=== PATIENT | male | born 1930 | race Caucasian/White ===

== ENCOUNTER 2017-02-13 21:08 | Emergency (ER) | payer OTHER, MEDICARE ==
[2017-02-13 21:19] VITALS: TEMP 98.1; O2SAT 94
--- NOTE | 2017-02-13 21:37 | CPEKG ---
Heart Rate: 78 RR Interval: 769 QRSD Interval: 98 QT Interval: 392 QTC Interval: 447 QRS [place]: -49 T Wave [place]: 63 EKG Severity - ABNORMAL ECG - EKG Impression: ATRIAL FIBRILLATION, V-RATE 63-93 EKG Impression: LEFT ANTERIOR FASCICULAR BLOCK EKG Impression: ATRIAL FIBRILLATIOIN HAS REPLACED NORMAL SINUS RHYTHM FROM PRIOR ECG Electronically Signed By: Derek Lopez 15-Feb-2017 16:38:44
[2017-02-13] MEDS ORDERED: IOPAMIDOL (ISOVUE 370) 100 ML BTL IV ONE (22:11)
[2017-02-13 22:45] VITALS: RESP 18
--- NOTE | 2017-02-13 22:48 | EDPHY ---
H & P Stated Complaint: New onset Afib 02/13, + D-Dimer 0.82 1545hours-called by Helen Time Seen by Provider: 02/13/17 21:38 HPI/ROS: Chief complaint: Irregular heartbeat, abnormal lab results HPI: 86-year-old male has had several weeks of fatigue. Was seen by his primary care physician today and diagnosed with new onset atrial fibrillation. Patient received a call from his doctor this evening telling him that a blood test done today was abnormal is concerned about the possibility of a blood clot in his lungs. Patient denies any chest pain or shortness of breath PE. No fevers or chills. No nausea or vomiting. He has he not aware that his heartbeat is irregular cannot feel at this time. No syncope or fainting. No calf pain or swelling. ROS: 10 point Review of Systems is negative except as noted in the HPI. Past medical history: Possible nocturnal seizures High cholesterol Physical exam: Gen: Awake, Alert, No Distress HEENT: Nose: no rhinorrhea Eyes: PERRLA, EOMI Mouth: Moist mucosa Neck: Supple, no JVD Chest: nontender, lungs clear to auscultation Heart: S1, S2 normal, no murmur, irregularly irregular Abd: Soft, non-tender, no guarding Back: no CVA tenderness, no midline tenderness Ext: no edema, non-tender Skin: no rash Neuro: CN II-XII intact, Sensation grossly intact, Strength 5/5 in bilateral upper and lower extremities - Personal History Current Tetanus/Diphtheria Vaccine: Unsure Tetanus Vaccine Date: < 10 years - Medical/Surgical History Hx Asthma: No Hx Chronic Respiratory Disease: No Hx Diabetes: No Hx Cardiac Disease: Yes Hx Renal Disease: No Hx Cirrhosis: No Hx Alcoholism: No Hx HIV/AIDS: No Hx Splenectomy or Spleen Trauma: No Other PMH: PMH: transient global amnesia, high cholesterol, HTN. PSH: Rt Rotator cuff repair, BCC nose and shoulder, knee arthroscopy. new onset AFIB-2016 - Social History Smoking Status: Never smoked Constitutional: Initial Vital Signs Temperature (C) 36.7 C 02/13/17 21:13 Heart Rate 89 02/13/17 21:13 Respiratory Rate 16 02/13/17 21:13 Blood Pressure 137/94 H 02/13/17 21:13 O2 Sat (%) 94 03/20/17 21:13 O2 Delivery Mode Room Air Allergies/Adverse Reactions: No Known Allergies Allergy (Verified 02/13/17 21:18) Home Medications: Medication Instructions Recorded Atorvastatin Calcium [Lipitor 10 10 mg PO DAILY 08/10/16 mg (*)] levETIRAcetam [Keppra 250 mg (*)] 250 mg PO BID #60 tab 08/10/16 Diclofenac Sodium 10/23/16 Omeprazole 10/23/16 diphenhydrAMINE 10/23/16 Aspirin 325 mg (*) 02/13/17 Gabapentin 02/13/17 Metoprolol Tartrate 02/13/17 Medical Decision Making - Diagnostics EKG Interpretation: EC:35 atrial fibrillation with a rate of 78, left anterior fascicular block , no acute ST or T-wave changes. Imaging: CT angiogram of the chest is negative for PE per Dr. Hernandez. ED Course/Re-evaluation: 86-year-old with new diagnosis of atrial fibrillation. He is rate controlled. He had blood work today which showed an elevated D-dimer at 0.8. He will need a CT scan rule out acute PE. This is negative anticipate he will be able to go home with follow-up with his primary care physician on Monday as scheduled. Departure - Departure Disposition: Home, Routine, Self-Care Clinical Impression: Atrial fibrillation Condition: Good Instructions: Yisel-fib (Atrial Fibrillation) (ED) Additional Instructions: Follow up with her primary care physician, Dr. Cervantes, on Monday as scheduled. Return emergency department for chest pain, shortness of breath, increasing weakness, passing out, or any other concerns. Referrals: Fly Cervantes MD [Primary Care Provider] - As per Instructions
[2017-02-13 23:15] VITALS: BP 127/88; PULSE 69
== END 2017-02-13 23:15 | disposition home or self-care (01) ==
DX: I48.91 Unspecified atrial fibrillation (principal); I10 Essential (primary) hypertension; Z79.82 Long term (current) use of aspirin
CPT/HCPCS: 71275; 93005; 99285; Q9967; 82607-90

== ENCOUNTER 2017-03-15 10:41 | Day surgery (SDC) | payer OTHER, MEDICARE ==
[2017-03-15] MEDS ORDERED: ASPIRIN EC 325 MG TAB PO ONE (10:54)
[2017-03-15] MEDS ORDERED: FAMOTIDINE 20 MG TAB PO ONE (10:54)
[2017-03-15] MEDS ORDERED: diphenhydrAMINE 25 MG CAP PO ONE (10:54)
[2017-03-15] MEDS ORDERED: NS 1,000 ML IV ONE (10:54)
[2017-03-15] MEDS ORDERED: DIAZEPAM 5 MG TAB PO ONE (10:54)
--- NOTE | 2017-03-15 11:25 | CPEKG ---
Heart Rate: 75 RR Interval: 800 QRSD Interval: 100 QT Interval: 400 QTC Interval: 447 QRS [place]: -44 T Wave [place]: 58 EKG Severity - ABNORMAL ECG - EKG Impression: ATRIAL FIBRILLATION EKG Impression: LEFT ANTERIOR FASCICULAR BLOCK EKG Impression: ABNRM R PROG, CONSIDER ASMI OR LEAD PLACEMENT Electronically Signed By: Derek Lopez 16-Mar-2017 14:23:18
[2017-03-15 11:47] LABS: % IMMATURE GRANULYOCYTES 0.6 % (0.0-1.1); ABSOLUTE IMMATURE GRANULOCYTES 0.04 10^3/uL (0.00-0.10); ADD DIFF? NO; ADD MORPH? NO; ADD SCAN? NO; ATYPICAL LYMPHOCYTE FLAG 0 (0-99); FRAGMENT RBC FLAG 0 (0-99); HEMOGLOBIN 15.8 g/dL (13.7-17.5); LEFT SHIFT FLG 0 (0-99); LIPEMIA HEMOLYSIS FLAG 80 (0-99); MEAN CELL HEMOGLOBIN 29.8 pg (27.9-34.1); MEAN CELL HEMOGLOBIN CONCENTR. 33.6 g/dL (32.4-36.7); MEAN CELL VOLUME 88.5 fL (81.5-99.8); MEAN PLATELET VOLUME 9.5 fL (8.7-11.7); PLATELET CLUMPS FLAG 0 (0-99); PLATELET COUNT 180 10^3/uL (150-400); RED BLOOD CELL COUNT 5.31 10^6/uL (4.40-6.38)
[2017-03-15 11:56] LABS: INR 1.08 (0.83-1.16); PROTIME(PATIENT) 13.9 SEC (12.0-15.0)
[2017-03-15 12:22] LABS: ANION GAP 11 mEq/L (8-16); CALCIUM 9.1 mg/dL (8.5-10.4); CARBON DIOXIDE 25 mEq/l (22-31); CHLORIDE 106 mEq/L (97-110); CHOLESTEROL 133 mg/dL (140-220); CHOLESTEROL/HDL RATIO 2.89 RATIO (1.00-4.97); CREATININE 1.2 mg/dL (0.7-1.3); GLOMERULAR FILTRATION RATE 58; GLUCOSE 90 mg/dL (70-100); HIGH DENSITY LIPOPROTEIN 46 mg/dL (40-65); LDL/HDL RATIO 1.54 RATIO (1.00-3.64); LOW DENSITY LIPOPROTEIN 71 mg/dL (80-100); MAGNESIUM 1.9 mg/dL (1.6-2.3); NON-HIGH DENSITY LIPOPROTEIN 87 mg/dL (90-129); POTASSIUM 4.3 mEq/L (3.5-5.2); SODIUM 142 mEq/L (134-144); TRIGLYCERIDE 82 mg/dL (40-150); VERY LOW DENSITY LIPOPROTEINS 16 mg/dL (8-25)
[2017-03-15] MEDS ORDERED: LIDOCAINE 1% 30 ML SDV ONE (13:28)
[2017-03-15] MEDS ORDERED: MIDAZOLAM 2 MG/2 ML VIAL ONE (13:29)
[2017-03-15] MEDS ORDERED: fentaNYL 100 MCG/2 ML INJ ONE (13:29)
[2017-03-15] MEDS ORDERED: IOPAMIDOL (ISOVUE-370) 150 ML BTL IV ONE (13:29)
[2017-03-15] MEDS ORDERED: HYDROCODONE/APAP 5/325 TAB PO PRN (15:01)
[2017-03-15] MEDS ORDERED: ONDANSETRON 4 MG/2 ML VIAL IVP PRN (15:01)
[2017-03-15] MEDS ORDERED: OXYCODONE/APAP 5/325 TAB PO PRN (15:01)
[2017-03-15] MEDS ORDERED: NITROGLYCERIN 0.4 MG BTL SL PRN (15:01)
[2017-03-15] MEDS ORDERED: ATROPINE SULFATE 1 MG/10 ML SYR IVP PRN (15:01)
--- NOTE | 2017-03-15 16:59 | CPIP ---
[f rep st] INVASIVE CARDIAC PROCEDURE DATE OF PROCEDURE: 03/15/2017 PROCEDURE PERFORMED: Diagnostic left heart catheterization. INDICATION FOR LEFT HEART CATHETERIZATION: Newly reduced left ventricular function with LVEF of 49% . Evidence of inferior wall ischemia and inferior wall hypokinesis on nuclear stress test. Symptom s of shortness of breath and dyspnea on exertion. PROCEDURE: After informed consent was obtained the patient was taken to the cardiac catheterization lab where he was prepped and draped in a sterile fashion. Using 1% lidocaine, the right groin was anesthetized. Initial attempt to cannulate the right common femoral artery was unsuccessful. Micro puncture needle technique was used successfully with the assistance of Dr. Rojas. After 6-Divehi f emoral sheath was placed, JL4 catheter was used to obtain images of the left coronary anatomy in mul tiple projections. A JL4 catheter was exchanged over a guidewire for a JR4 catheter. JR4 catheter was used to take images of the right coronary anatomy in multiple projections. The JR4 catheter was exchanged over a guidewire for an angled pigtail catheter. An angled pigtail catheter was used to cross the aortic valve. LVEDP was assessed. Left ventriculogram was performed. An angled pigtail catheter was removed over guidewire. The patient tolerated the procedure well without complications . FINDINGS: 1. Left main is normal size and normal caliber, bifurcates into the left anterior descending and le ft circumflex artery. There was no evidence of coronary artery disease within the left main. 2. The left anterior descending has a moderate-size 1st and small size 2nd diagonal branch. There are multiple septal perforators. The LAD wraps around the LV apex. Left anterior descending artery is free of coronary artery disease. 3. The left circumflex coronary artery has a moderate size 1st and 2nd obtuse marginal branch. The re was some mild luminal irregularities within the mid and distal segments of the circumflex artery. 4. Right coronary artery. It is a dominant vessel. PDA and PLV branch. There is no ev idence of coronary artery disease within the right coronary artery. 5. Left ventriculogram demonstrates LVEF of 50% to 55%. There was no evidence of aortic valve grad ient. CONCLUSION: Mild nonobstructive coronary artery disease with mild luminal irregularities within cir cumflex vessel. Left ventricular ejection fraction of 50% to 55%. No flow-limiting coronary artery disease. PLAN: The patient will cover for 4 hours in the CVC[facility]. Patient will be discharged home. The aaron graf will hold Eliquis until followup visit on Monday, March 20, 2017. /[id number]/MODL
== END 2017-03-15 18:43 | disposition home or self-care (01) ==
LOC: FCATH 10:41
PROVIDERS: ATTEND Internal Medicine Cardiovascular Disease
DX: I25.10 Atherosclerotic heart disease of native coronary artery without angina pectoris (principal); I42.9 Cardiomyopathy, unspecified; I48.1 Persistent atrial fibrillation; I44.4 Left anterior fascicular block
CPT/HCPCS: C1760; J1644; J2250; J3010; Q9967

== ENCOUNTER 2017-03-29 07:53 | Day surgery (SDC) | payer OTHER, MEDICARE ==
[2017-03-29] MEDS ORDERED: PROPOFOL 200 MG/20 ML VIAL IVP ONE (07:57)
[2017-03-29] MEDS ORDERED: NS 500 ML IV ONE (07:57)
[2017-03-29] MEDS ORDERED: fentaNYL 100 MCG/2 ML INJ IVP ONE (07:57)
[2017-03-29] MEDS ORDERED: BENZOCAINE UNIT DOSE SPRAY HURRICAINE MM ONE (07:57)
[2017-03-29] MEDS ORDERED: MIDAZOLAM 2 MG/2 ML VIAL IVP ONE (07:57)
--- NOTE | 2017-03-29 08:16 | CPEKG ---
Heart Rate: 77 RR Interval: 779 QRSD Interval: 98 QT Interval: 424 QTC Interval: 480 QRS [place]: -41 T Wave [place]: 54 EKG Severity - ABNORMAL ECG - EKG Impression: ATRIAL FIBRILLATION, V-RATE 54-102 EKG Impression: LEFT ANTERIOR FASCICULAR BLOCK EKG Impression: BORDERLINE PROLONGED QT INTERVAL Electronically Signed By: Steven Bradford 30-Mar-2017 08:04:01
[2017-03-29 08:53] LABS: APTT 28.9 SEC (23.0-38.0); INR 1.15 (0.83-1.16); PROTIME(PATIENT) 14.7 SEC (12.0-15.0)
[2017-03-29] MEDS ORDERED: LIDOCAINE 2% 5 ML SDV ONE (09:11)
[2017-03-29 09:14] LABS: CALCIUM 9.1 mg/dL (8.5-10.4); CARBON DIOXIDE 24 mEq/l (22-31); CHLORIDE 106 mEq/L (97-110); CREATININE 1.4 mg/dL (0.7-1.3); GLOMERULAR FILTRATION RATE 48; GLUCOSE 94 mg/dL (70-100); SODIUM 140 mEq/L (134-144)
[2017-03-29 09:16] LABS: ANION GAP 10 mEq/L (8-16); POTASSIUM 4.7 mEq/L (3.5-5.2)
[2017-03-29] MEDS ORDERED: PROPOFOL 200 MG/20 ML VIAL ONE (09:47)
[2017-03-29] MEDS ORDERED: LIDOCAINE/PRILOCAINE 1 EACH CRTUBE TP ONE (10:07)
[2017-03-29] MEDS ORDERED: APIXABAN 5 MG TAB ONE (10:40)
[2017-03-29] MEDS ORDERED: APIXABAN 5 MG TAB PO ONE (11:00)
--- NOTE | 2017-03-29 12:24 | GPN ---
[f rep st] PROCEDURE NOTE DATE OF PROCEDURE: 03/29/2017 PROCEDURE PERFORMED: Transesophageal echocardiogram/cardioversion. INDICATION FOR PROCEDURE: Symptomatic atrial fibrillation. PROCEDURE: The patient is a pleasant 86-year-old gentleman with newly diagnosed rate-controlled sym ptomatic atrial fibrillation. He complains of significant fatigue. He has undergone recent diagnos tic left heart catheterization demonstrating no evidence of flow-limiting coronary disease. He cont inues to be fatigued despite rate-controlled atrial fibrillation. He has been compliant with Eliqui s 5 mg p.o. b.i.d. However, he has not been on Eliquis for a full 30 days without interruption, pro mpting DANIEL prior to cardioversion. After informed consent was obtained, the patient was brought to the cardiovascular procedure room. He received consent for DANIEL, cardioversion, as well as anesthesia with propofol. After appropriate consents were signed and all questions were answered, the patient had a bite block in place. Propof ol was administered with the assistance of Anesthesia. Once appropriate level of sedation was achie giovanni, DANIEL probe was passed without incident. DANIEL probe was used to take images of all cardiac struct ures. Please see complete DANIEL report for full details. There was no evidence of left atrial append age thrombus. Atrial appendage was seen at multiple angles and X-plane views as well. There was ev idence of spontaneous echo contrast within the left atrium with no evidence of thrombus. DANIEL probe was removed without incident. The patient underwent attempts at cardioversion with 200 ivon ules of synchronized energy x3. Attempts were unsuccessful and he remained in rate controlled atria l fibrillation. He awoke from the procedure without difficulty. He had no complaints. PLAN: 1. We will continue Eliquis 5 mg p.o. b.i.d. 2. We will decrease metoprolol tartrate to 12.5 mg p.o. b.i.d. 3. Add amiodarone 400 mg p.o. b.i.d. x1 week and decrease to 400 mg daily. 4. We will plan to follow up in the office in 2 weeks. /[id number]/MODL
== END 2017-03-29 11:45 | disposition home or self-care (01) ==
LOC: FCATH 07:53
PROVIDERS: ATTEND Internal Medicine Cardiovascular Disease
DX: I48.1 Persistent atrial fibrillation (principal); R53.82 Chronic fatigue, unspecified; I44.4 Left anterior fascicular block; I10 Essential (primary) hypertension
CPT/HCPCS: J2704

== ENCOUNTER 2017-05-24 08:58 | Day surgery (SDC) | payer OTHER, MEDICARE ==
[2017-05-24] MEDS ORDERED: NS 500 ML IV ONE (09:07)
[2017-05-24] MEDS ORDERED: MIDAZOLAM 2 MG/2 ML VIAL IVP ONE (09:07)
[2017-05-24] MEDS ORDERED: fentaNYL 100 MCG/2 ML INJ IVP ONE (09:07)
[2017-05-24] MEDS ORDERED: PROPOFOL 200 MG/20 ML VIAL IVP ONE (09:07)
--- NOTE | 2017-05-24 09:19 | CPEKG ---
Heart Rate: 62 RR Interval: 968 QRSD Interval: 100 QT Interval: 452 QTC Interval: 459 QRS [place]: -53 T Wave [place]: 66 EKG Severity - ABNORMAL ECG - EKG Impression: ATRIAL FIBRILLATION, V-RATE 50-72 EKG Impression: LEFT ANTERIOR FASCICULAR BLOCK Electronically Signed By: Derek Lopez 25-May-2017 09:55:14
[2017-05-24 09:52] LABS: ANION GAP 11 mEq/L (8-16); CARBON DIOXIDE 21 mEq/l (22-31); CHLORIDE 107 mEq/L (97-110); CREATININE 1.5 mg/dL (0.7-1.3); GLOMERULAR FILTRATION RATE 44; GLUCOSE 94 mg/dL (70-100); POTASSIUM 4.6 mEq/L (3.5-5.2); SODIUM 139 mEq/L (134-144)
[2017-05-24 10:03] LABS: INR 1.36 (0.83-1.16); PROTIME(PATIENT) 16.8 SEC (12.0-15.0)
[2017-05-24 10:04] LABS: APTT 30.2 SEC (23.0-38.0)
[2017-05-24] MEDS ORDERED: ATROPINE SULFATE 1 MG/10 ML SYR ONE (10:05)
[2017-05-24] MEDS ORDERED: LIDOCAINE 2% 5 ML SDV ONE (10:06)
--- NOTE | 2017-05-24 10:24 | CPEKG ---
Heart Rate: 61 RR Interval: 984 P-R Interval: 232 QRSD Interval: 106 QT Interval: 488 QTC Interval: 492 P [place] [employer]: 26 QRS [place] [employer]: -49 T Wave [place] [employer]: 31 EKG Severity - ABNORMAL ECG - EKG Impression: SINUS RHYTHM EKG Impression: FIRST DEGREE AV BLOCK EKG Impression: LEFT ANTERIOR FASCICULAR BLOCK EKG Impression: BORDERLINE PROLONGED QT INTERVAL EKG Impression: SINUS RHYTHM HAS REPLACED ATRIAL FIBRILLATION Electronically Signed By: Derek Lopez 25-May-2017 09:55:41
--- NOTE | 2017-05-24 11:30 | CPR ---
[f rep st] NONINVASIVE CARDIAC PROCEDURE REPORT DATE OF PROCEDURE: 05/24/2017 PROCEDURE PERFORMED: Direct current cardioversion. INDICATION FOR PROCEDURE: Symptomatic atrial fibrillation. HISTORY OF PRESENT ILLNESS: The patient is a pleasant 86-year-old gentleman with symptomatic rate c ontrolled atrial fibrillation. Attempts at cardioversion last month were unsuccessful with 200 joul es of synchronized energy x3. He was subsequently loaded on amiodarone. He has remained on amiodar one 200 mg once daily. He remains on anticoagulation with Eliquis 5 mg p.o. b.i.d. He has not miss ed a dose of Eliquis in well over 4 weeks. He did take his Eliquis this morning. He took his amiod arone 200 mg once daily this morning, as well. After informed consent was obtained for anesthesia, as well as for cardioversion, patient was given anesthesia with propofol. Once appropriate level of sedation was achieved, the patient underwent ca rdioversion, initially with a single synchronized biphasic shock at 200 joules. He remained in atri al fibrillation. A second shock of 200 joules of synchronized energy resulted in normalization of r hythm back to sinus bradycardia, with rates in the mid 50s. He awoke from the procedure without complications. He was feeling well. Of note, he did develop a scrape on his left elbow after the initial cardioversion. Hemostasis was achieved, and bandage was applied. This was discussed with the patient and his family. PLAN: 1. Patient will be discharged home on outpatient medications. 2. Patient will continue amiodarone 200 mg once daily. 3. Patient will remain on Eliquis 5 mg p.o. b.i.d. I have expressed the importance of no interrupt ion of anticoagulation therapy. 4. He will follow up in the office in 2 weeks. /[id number]/MODL
== END 2017-05-24 12:31 | disposition home or self-care (01) ==
LOC: FCATH 08:58
PROVIDERS: ATTEND Internal Medicine Cardiovascular Disease
PROC: 5A2204Z Restoration of Cardiac Rhythm, Single (ICD-10-PCS; principal; 2017-05-24)
DX: I48.91 Unspecified atrial fibrillation (principal); G40.909 Epilepsy, unspecified, not intractable, without status epilepticus; F32.9 Major depressive disorder, single episode, unspecified; M85.80 Other specified disorders of bone density and structure, unspecified site
CPT/HCPCS: J0461; J2704

== ENCOUNTER → 2017-07-06 | Outpatient (CLI) | payer OTHER, MEDICARE | LOC: BMCIMAGING 16:07 | PROVIDERS: ATTEND Internal Medicine Cardiovascular Disease | DX: R53.82 Chronic fatigue, unspecified (principal) ==

== ENCOUNTER → 2018-04-06 | Outpatient (CLI) | payer OTHER, MEDICARE | LOC: BHFA 13:15 | PROVIDERS: ATTEND Internal Medicine Cardiovascular Disease | DX: I48.91 Unspecified atrial fibrillation (principal); Z79.899 Other long term (current) drug therapy; R00.1 Bradycardia, unspecified; R53.83 Other fatigue ==

== ENCOUNTER → 2018-05-17 | Outpatient (CLI) | payer OTHER, MEDICARE | LOC: BHFA 11:00 | PROVIDERS: ATTEND Internal Medicine Cardiovascular Disease | DX: I48.91 Unspecified atrial fibrillation (principal); I25.10 Atherosclerotic heart disease of native coronary artery without angina pectoris ==

== ENCOUNTER 2018-08-10 11:58 | Emergency (ER) | payer OTHER, MEDICARE ==
--- NOTE | 2018-08-10 13:10 | EDPHY ---
H & P Stated Complaint: r knee snapped while standing up wed Time Seen by Provider: 08/10/18 12:58 HPI/ROS: CHIEF COMPLAINT: Right knee pain HISTORY OF PRESENT ILLNESS: 87-year-old male presents with right knee pain. 2 days ago he was sitting and when he tried to stand up he had sudden onset of severe pain, associated with a snapping sound in his right knee. Difficulty changing from a sitting to standing position since that injury. No pain when supine or when seated. Able to walk with a cane. Requesting MRI. ROS: No numbness, weakness, excessive bleeding, syncopal episode, other injury. - Personal History Current Tetanus Diphtheria and Acellular Pertussis (TDAP): No Tetanus Vaccine Date: < 10 years - Medical/Surgical History Hx Asthma: No Hx Chronic Respiratory Disease: No Hx Diabetes: No Hx Cardiac Disease: Yes Hx Renal Disease: No Hx Cirrhosis: No Hx Alcoholism: No Hx HIV/AIDS: No Hx Splenectomy or Spleen Trauma: No Other PMH: PMH: transient global amnesia, high cholesterol, HTN. PSH: Rt Rotator cuff repair, BCC nose and shoulder, knee arthroscopy. new onset AFIB-2016 - Social History Smoking Status: Never smoked - Physical Exam Exam: General Appearance: Alert, pleasant Eyes: Pupils equal and round, no conjunctival pallor or injection ENT, Mouth: Mucous membranes moist Neck: Normal inspection Respiratory: Lungs are clear to auscultation Cardiovascular: Regular rate and rhythm Gastrointestinal: Abdomen is soft and nontender Neurological: A&O, nonfocal exam Skin: Warm and dry, no rash Extremities: Right knee-tenderness and swelling over the lower patella, no joint effusion, pain with range of motion, no pain with valgus/varus stress Psychiatric: Mood and affect normal Constitutional: Initial Vital Signs Temperature (C) 36.4 C 08/10/18 12:09 Heart Rate 53 L 08/10/18 12:09 Respiratory Rate 18 08/10/18 12:09 Blood Pressure 162/82 H 08/10/18 12:09 O2 Sat (%) 98 08/10/18 12:09 O2 Delivery Mode Room Air Allergies/Adverse Reactions: No Known Allergies Allergy (Verified 08/10/18 12:06) Home Medications: Medication Instructions Recorded Atorvastatin Calcium [Lipitor 10 10 mg PO DAILY 08/10/16 mg (*)] Omeprazole 20 mg PO DAILY 10/23/16 diphenhydrAMINE 50 mg PO PRN PRN 10/23/16 Gabapentin 300 mg PO DAILY 02/13/17 Eliquis 5 mg PO BID 03/29/17 Latanoprost drop EACHEYE DAILY 03/29/17 levETIRAcetam [Keppra 250 mg (*)] 1,500 mg PO DAILY 03/29/17 traMADol [Ultram 50 mg (*)] 50 mg PO TID PRN 03/29/17 Amiodarone HCl 08/10/18 Lisinopril 10 mg PO DAILY #30 tablet 08/10/18 Propranolol HCl 08/10/18 Medical Decision Making - Diagnostics Imaging Results: Imaging Impressions Knee X-Ray 08/10/18 12:20 Impression: 1. Ossification or calcification within distal quadriceps tendon. 2. Thickening of the prepatellar soft tissues and the patellar tendon. Lower Extremity MRI 08/10/18 13:07 Impression: 1. Severe tendinopathy in the distal quadriceps tendon with discontinuity of fibers suggesting severe chronic tear which is near complete and has chronic calcification and ossification in the distal quadriceps tendon. 2. Mildly complex degenerative tear of the posterior horn and body of the medial meniscus. Grade 1 and grade 2 articular cartilage disease of the medial compartment. 3. Upper surface tear anterior horn and body of the lateral meniscus and under surface tear in the posterior horn. Grade 1 and grade 2 articular cartilage disease of the lateral compartment. 4. Grade 2 articular cartilage disease of the patellofemoral compartment. Mild tendinopathy of the patellar tendon. Prepatellar bursitis. 5. Strain iliotibial band and possible iliotibial band syndrome. 6. Minimal strain medial collateral ligament and distal pes anserinus. 7. Mild suprapatellar joint effusion. Results called and discussed with Dr. Anitha De La Cruz on 08/10/2018, 15:21. ED Course/Re-evaluation: 3:15 p.m.-MRI results discussed with Dr. Del Rosario reveals near complete tear of the quadriceps tendon, without surrounding erythema, likely subacute. Prepatellar swelling, consistent with bursitis. Placed in a knee immobilizer. f/u ortho. MRI results discussed with the patient. On discharge, the patient's blood pressure is quite elevated. In discussion with him, his blood pressure has been running high lately. He used to be on lisinopril for blood pressure, but is not taking lisinopril now. He is scheduled for pacemaker because of bradycardia. Currently on propranolol for tremors. Will restart lisinopril. He will check and record blood pressure twice daily. Follow-up with PCP on Monday. - Data Points Medications Given: Discontinued Medications Lisinopril (Zestril) 10 mg PO EDNOW ONE Stop: 08/11/18 15:44 Last Admin: 08/10/18 16:05 Dose: 10 mg Departure - Departure Disposition: Home, Routine, Self-Care Clinical Impression: Knee pain, right Qualifiers: Chronicity: acute Qualified Code(s): M25.561 - Pain in right knee Hypertension Qualifiers: Hypertension type: essential hypertension Qualified Code(s): I10 - Essential ( primary) hypertension Condition: Good Instructions: Lisinopril (By mouth), Knee Pain (ED) Additional Instructions: Your MRI reveals a subacute quadriceps tendon tear and swelling anterior to the patella, consistent with bursitis. There also tears of the meniscus. Use the knee immobilizer and a cane or crutches to walk. Your blood pressure is running high today. You received lisinopril 10 mg in the emergency department. I also wrote a prescription for you. Please check an record your blood pressure twice daily. If your blood pressure continues to be elevated over the weekend, call your primary care physician. Referrals: Fly Soto MD [Medical Doctor] - As per Instructions (Call to make an appointment.) Prescriptions: Lisinopril 10 mg PO DAILY #30 tablet
[2018-08-10 15:45] VITALS: BP 200/100
[2018-08-10] MEDS ORDERED: LISINOPRIL 20 MG TAB ONE (15:53)
[2018-08-10] MEDS: LISINOPRIL 2.5 MG TAB PO ONE ×2 (16:00→16:05)
== END 2018-08-10 16:16 | disposition home or self-care (01) ==
DX: M25.561 Pain in right knee (principal); M76.891 Other specified enthesopathies of right lower limb, excluding foot; M23.221 Derangement of posterior horn of medial meniscus due to old tear or injury, right knee; M23.241 Derangement of anterior horn of lateral meniscus due to old tear or injury, right knee; M25.461 Effusion, right knee; I10 Essential (primary) hypertension; R00.1 Bradycardia, unspecified; R25.1 Tremor, unspecified
CPT/HCPCS: 73564; 73721; 99284; L1830

== ENCOUNTER 2018-11-01 09:29 | Inpatient (IN) | payer OTHER, MEDICARE ==
--- NOTE | 2018-10-31 20:28 | PDGENHP ---
History & Physical Chief Complaint: right leg pain, quadriceps tendon rupture History of Present Illness: 88 yo male, presenting today for right quadriceps tendon rupture repair by dr quiroz for right quad tendon rupture, right knee pain , right knee swelling. Relevant Physical Exam: 5 extension passively, mid range flexion 45-90 non painful, mild effusion, active extensor mechanism but foot drops with SLR and lacks full extension, quad suprapatellar fluid collection. +extensor lag 30 degrees. steppage gait. Past Medical History PMH: - Medical/Surgical History Hx Asthma: No Hx Chronic Respiratory Disease: No Hx Cardiac Disease: Yes Hx Diabetes: No Hx Renal Disease: No Hx Alcoholism: No Hx Cirrhosis: No Hx HIV/AIDS: No Hx Splenectomy or Spleen Trauma: No Other PMH: PMH: transient global amnesia, high cholesterol, HTN. PSH: Rt Rotator cuff repair, BCC nose and shoulder, knee arthroscopy. new onset AFIB-2016 - Social History Smoking Status: Never smoked Assessment & Plan Assessment: 88 yo male presenting today for surgery of right quadriceps tendon rupture repair by dr. quiroz with in patient admission -admission to inpatient post surgery for evaluation/management -anesthesia pre operative evaluation -proph: incentive spirometry, left lower extremity SCD's and steven hoes -iv placement w/ ns 0.9%
[2018-11-01] MEDS ORDERED: ceFAZolin 2 GM/DEXTROSE 100 ML IV ONE (13:17)
[2018-11-01] MEDS ORDERED: LR 1,000 ML IV ONE (13:18)
[2018-11-01] MEDS ORDERED: ROPIVACAINE HCL 20 MG/10 ML INJ EP ONE (13:20)
--- NOTE | 2018-11-01 14:36 | PDHPUP ---
History & Physical Update H&P update statement: This history and physical update is based on an assessment of the patient which was completed after admission or registration (within 24 hours), but prior to the surgery/procedure. H&P update: H&P reviewed & patient examined, no change in patient's condition since H&P completed
[2018-11-01] MEDS ORDERED: DEXAMETHASONE 4 MG/ML VIAL IVP PRN (14:39)
[2018-11-01] MEDS ORDERED: ONDANSETRON 4 MG/2 ML VIAL IVP PRN ×2 (14:39→16:32)
[2018-11-01] MEDS ORDERED: ACETAMINOPHEN 500 MG TAB PO PRN (14:39)
[2018-11-01] MEDS ORDERED: NALOXONE HCL 0.4 MG/ML INJ IVP PRN (14:39)
[2018-11-01] MEDS ORDERED: oxyCODONE IR 5 MG TAB PO PRN (14:39)
[2018-11-01] MEDS ORDERED: HYDROmorphONE/DILAUDID 2 MG/ML INJ IVP PRN (14:39)
[2018-11-01] MEDS ORDERED: MIDAZOLAM 2 MG/2 ML VIAL IVP ONE (14:39)
--- NOTE | 2018-11-01 14:41 | PDANEPAE ---
ANE History of Present Illness Right Quad Tendon Repair ANE Past Medical History - Cardiovascular History Hx Hypertension: Yes Hx Arrhythmias: Yes Hx Chest Pain: No Hx Coronary Artery / Peripheral Vascular Disease: No Hx CHF / Valvular Disease: No Hx Palpitations: No Cardiovascular History Comment: SYMPTOMATIC BRADYCARDIA - Pulmonary History Hx COPD: No Hx Asthma/Reactive Airway Disease: No Hx Recent Upper Respiratory Infection: No Hx Oxygen in Use at Home: No Hx Sleep Apnea: No Sleep Apnea Screening Result - Last Documented: Positive - Neurologic History Hx Cerebrovascular Accident: No Hx Seizures: No Hx Dementia: No Neurologic History Comment: ESSENTIAL TREMMOR - Endocrine History Hx Diabetes: No - Renal History Hx Renal Disorders: No - Liver History Hx Hepatic Disorders: No - Neurological & Psychiatric Hx Hx Neurological and Psychiatric Disorders: Yes Neurological / Psychiatric History Comment: ESSENTIAL TREMOR. SITUATIONAL ANXIETY - Cancer History Hx Cancer: Yes Cancer History Comment: BASAL CELL - Congenital Disorder History Hx Congenital Disorders: No - GI History Hx Gastrointestinal Disorders: No - Other Health History Other Health History: BRUISES EASILY - Chronic Pain History Chronic Pain: Yes (LEFT KNEE) - Surgical History Prior Surgeries: cardioversion. R KNEE SCOPE ANE Review of Systems Review of Systems: - Exercise capacity METS (RN): 4 METS ANE Patient History - Allergies Allergies/Adverse Reactions: No Known Allergies Allergy (Verified 08/10/18 12:06) - Home Medications Home Medications: Atorvastatin Calcium [Lipitor 10 mg (*)] 10 mg PO HS 08/10/16 [Last Taken 20:00] diphenhydrAMINE [Benadryl 50 MG (*)] 50 mg PO HS 10/23/16 [Last Taken Unknown] Gabapentin [Neurontin 300 MG (*)] 300 mg PO HS 02/13/17 [Last Taken 03/28/17 21: 00] Apixaban [Eliquis] 5 mg PO BID 03/29/17 [Last Taken 03/28/17 20:00] Latanoprost 0.005% [Xalatan 0.005% (*)] 1 drops EACHEYE HS 03/29/17 [Last Taken 03/28/17 21:00] Amiodarone HCl [Pacerone (*)] 100 mg PO DAILY 08/10/18 [Last Taken Unknown] Herbals/Supplements -Info Only 1 ea PO DAILY 10/30/18 [Last Taken Unknown] Losartan/Hydrochlorothiazide [Losartan-Hctz 100-12.5 mg Tab] 1 each PO HS [Last Taken Unknown] Propranolol HCl 60 mg PO DAILY 10/30/18 [Last Taken Unknown] Psyllium Husk (with Sugar) [Metamucil Packet] 1 each PO HS 10/30/18 [Last Taken Unknown] levETIRACETAM [Keppra Xr] 3,000 mg PO DAILY 10/30/18 [Last Taken Unknown] - NPO status NPO Since - Liquids (Date): 11/01/18 NPO Since - Liquids (Time): 00:00 NPO Since - Solids (Date): 11/01/18 NPO Since - Solids (Time): 00:00 - Smoking Hx Smoking Status: Never smoked - Family Anes Hx Family Hx Anesthesia Complications: none ANE Labs/Vital Signs - Labs Result Diagrams: 11/01/18 14:05 - Vital Signs Blood Pressure: 153/94 Heart Rate: 64 Respiratory Rate: 16 O2 Sat (%): 97 Height: 203.2 cm Weight: 124.738 kg ANE Physical Exam - Airway Neck exam: FROM Mallampati Score: Class 2 Mouth exam: normal dental/mouth exam - Pulmonary Pulmonary: clear to auscultation - Cardiovascular Cardiovascular: regular rate and rhythym - ASA Status ASA Status: III ANE Anesthesia Plan Anesthesia Plan: general endotracheal anesthesia Regional Anesthesia: adductor canal FNB
[2018-11-01] MEDS ORDERED: PROPOFOL 200 MG/20 ML VIAL ONE (14:49)
[2018-11-01] MEDS ORDERED: ROCURONIUM 50 MG/5 ML VIAL ONE (14:54)
[2018-11-01] MEDS ORDERED: DEXAMETHASONE 4 MG/ML VIAL ONE (14:54)
[2018-11-01] MEDS ORDERED: ONDANSETRON 4 MG/2 ML VIAL ONE (14:54)
[2018-11-01] MEDS ORDERED: LIDOCAINE 2% 5 ML SDV ONE (14:54)
[2018-11-01] MEDS ORDERED: ceFAZolin 3 GM in D5W 100 ML IV ONE (15:00)
[2018-11-01] MEDS ORDERED: HYDROmorphONE/DILAUDID 2 MG/ML INJ ONE (15:28)
[2018-11-01] MEDS ORDERED: HYDROCODONE/APAP 5/325 TAB PO PRN (16:32)
[2018-11-01] MEDS ORDERED: ACETAMINOPHEN 325 MG TAB PO PRN (16:32)
--- NOTE | 2018-11-01 16:39 | POSTANESTH ---
Post Anesthetic Evaluation Cardiovascular Status: Normal, Stable Respiratory Status: Normal, Stable Level of Consciousness/Mental Status: Can Participate in Eval, Mildly Sleepy, Arousable Pain Control: Adequate, Prn Tx Ordered Nausea/Vomiting Control: Adequate, Prn Tx Ordered Complications Possibly Related to Anesthesia: None Noted
[2018-11-01] MEDS ORDERED: fentaNYL 100 MCG/2 ML INJ ONE (16:54)
[2018-11-01] MEDS: fentaNYL 100 MCG/2 ML INJ IVP PRN ×2 (16:56→17:15)
--- NOTE | 2018-11-01 18:07 | PDHOSCONS ---
Addendum entered and electronically signed by Yeimy Douglas NP 11/01/18 19:25 : Spoke with Dr. Dunn re: his bradycardia and use of propranolol. We will hold the medication for now. Original Note: <Yeimy Douglas - Last Filed: 11/01/18 18:36> History and Physical - Chief Complaint Right quadricep tendon rupture repair - History of Present Illness 88 y/o male with a complicated health history presented today for a right quadricep tendon rupture repair by Dr. Arreola. The hospital medicine team has been asked to consult. This is my first encounter with the pt and his chart. I encountered the pt in recovery. He is A&Ox3, pleasant and cooperative, in no apparent distress. He denies chest pains, SOB, headaches, lightheadedness, palpitations. He was scheduled to receive a pacemaker yesterday but per the pt , his knees takes precedence. The pacemaker was to assist with his symptomatic bradycardia (40s). He stopped taking propranolol because of the bradycardia and fatigue but the tremors worsened. He started back up on propranolol and his asset protection assistant believed it was this medication and amiodarone causing bradycardia with the solution to consider a pacemaker. Per his PCP, Dr. Cortez, he was to taper off propranolol and increase gabapentin. I am unsure whether he did this. He does want to receive a pacemaker sometime in the future but wants to fix his knees first. Past Medical/Surgical History 1. 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 Anxiety 3. Essential tremors (on Propranolol) 4. Transient global amnesia 5. Hypertension 6. Atrial Fibrillation (newly diagnosed January 2017; on Eliquis and Amiodarone) 7. Symptomatic bradycardia 8. Hyperlipidemia 9. Right rotator cuff repair 10. Knee arthroscopy 11. BCC of nose and shoulder Social 1. Lives in a house with his , Ximena 2. Denies tobacco. Has been sober from alcohol for 35 years. Occasionally takes a cannabis edible (gummy) to help him sleep 3. 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 Vitals 164/89 57 HR 12 36.6c 99% NC History Information - Allergies/Home Medication List Allergies/Adverse Reactions: No Known Allergies Allergy (Verified 08/10/18 12:06) Home Medications: Atorvastatin Calcium [Lipitor 10 mg (*)] 10 mg PO HS 08/10/16 [Last Taken 20:00] diphenhydrAMINE [Benadryl 50 MG (*)] 50 mg PO HS 10/23/16 [Last Taken Unknown] Gabapentin [Neurontin 300 MG (*)] 300 mg PO HS 02/13/17 [Last Taken 03/28/17 21: 00] Apixaban [Eliquis] 5 mg PO BID 03/29/17 [Last Taken 03/28/17 20:00] Latanoprost 0.005% [Xalatan 0.005% (*)] 1 drops EACHEYE HS 03/29/17 [Last Taken 03/28/17 21:00] Amiodarone HCl [Pacerone (*)] 100 mg PO DAILY 08/10/18 [Last Taken Unknown] Herbals/Supplements -Info Only 1 ea PO DAILY 10/30/18 [Last Taken Unknown] Losartan/Hydrochlorothiazide [Losartan-Hctz 100-12.5 mg Tab] 1 each PO HS [Last Taken Unknown] Propranolol HCl 60 mg PO DAILY 10/30/18 [Last Taken Unknown] Psyllium Husk (with Sugar) [Metamucil Packet] 1 each PO HS 10/30/18 [Last Taken Unknown] levETIRACETAM [Keppra Xr] 3,000 mg PO DAILY 10/30/18 [Last Taken Unknown] I have personally reviewed and updated: family history, medical history, social history, surgical history Past Medical History: See HPI list - Surgical History Additional surgical history: See HPI list - Family History Positive for: sudden (Mother was 89 y/o; cause unknown.), hypertension - Social History Smoking Status: Never smoked Alcohol Use: Sober Drug Use: Marijuana Review of Systems Review of Systems: ROS: 10pt was reviewed & negative except for what was stated in HPI & below Constitutional: Reports: no symptoms EENMT: Reports: no symptoms Cardiac: Reports: no symptoms Respiratory: Reports: no symptoms Gastrointestinal: Reports: no symptoms Genitourinary: Reports: no symptoms Muscolosketal: Reports: muscle pain (surgical post-op pain RLE 4/5-10 pain scale ) Skin: Reports: no symptoms Neurological: Reports: pre-existing deficit, tremors Hematologic/Lymphatic: Reports: no symptoms Immunologic/Allergy: Reports: no symptoms Physical Exam Physical Exam: Temp Pulse Resp BP Pulse Ox 36.6 C 64 12 164/89 H 99 11/01/18 17:07 11/01/18 14:41 11/01/18 17:32 11/01/18 17:32 11/01/18 17:32 Constitutional: no apparent distress, appears nourished, not in pain Eyes: PERRL, anicteric sclera, EOMI Ears, Nose, Mouth, Throat: moist mucous membranes, hearing normal, ears appear normal, no oral mucosal ulcers Cardiovascular: regular rate and rhythym, no murmur, rub, or gallop, bradycardia , No edema Peripheral Pulses: 2+: dorsalis-pedis (R) (Radial 2+), dorsalis-pedis (L) ( Radial 2+) Respiratory: no respiratory distress, no rales or rhonchi, clear to auscultation Gastrointestinal: normoactive bowel sounds, soft, non-tender abdomen, no palpable masses Genitourinary: no bladder fullness, no bladder tenderness Skin: warm, normal color, no rashes or abrasions, no fluctuance, no induration, No mottled Musculoskeletal: pain with ROM (Did not ask pt to flex R knee d/t s/p quadricep tendon repair.) Neurologic: AAOx3, sensation intact bilaterally, CN II-XII Intact Psychiatric: interacting appropriately, not anxious, not encephalopathic, thought process linear Lymph, Heme, Immunologic: no cervical LAD, no supraclavicular LAD Lab Data & Imaging Review 11/01/18 14:05 Sodium 139 mEq/L (135-145) 11/01/18 14:05 Potassium 4.4 mEq/L (3.5-5.2) 11/01/18 14:05 Chloride 108 mEq/L (97-110) 11/01/18 14:05 Carbon Dioxide 22 mEq/l (22-31) 11/01/18 14:05 Anion Gap 9 mEq/L (6-14) 11/01/18 14:05 BUN 30 mg/dL (7-23) H 11/01/18 14:05 Creatinine 1.5 mg/dL (0.7-1.3) H 11/01/18 14:05 Estimated GFR 44 11/01/18 14:05 Glucose 93 mg/dL (70-100) 11/01/18 14:05 Calcium 9.0 mg/dL (8.5-10.4) 11/01/18 14:05 Assessment & Plan Plan: 88 y/o male POD #0 right quadricep tendon rupture repair. 1. Right knee -Ortho on case -Pain PO/IVP PRN -PT/OT -Ice packs -IV abx -IVF -Anti-coags timing per ortho; will hold his Eliquis until ortho is OK with receiving 2. Symptomatic Bradycardia secondary to medications for his essential tremors -Continue to monitor; cont tele -Hold propranolol if HR < 50 -Cont tele/pulse ox monitoring 3. Anxiety -May resume gabapentin 4. Transient global amnesia -May resume Keppra 5. Atrial Fibrillation -Holding Eliquis until cleared by ortho to give -May resume amiodarone -Cont tele/pulse ox monitoring 6. Hyperlipidemia -May resume atorvastatin 7. Hypertension -Continue to monitor -May resume propranolo; monitor HR. Hold if < 50 -May resume losartan Diet: Cardiac VTE ppx: SCDs for now. He may resume Eliquis when cleared by ortho to do so. Code: Full Dispo: Admit to inpatient <Brent Dunn - Last Filed: 11/01/18 21:49> History and Physical - History of Present Illness Review of Systems Review of Systems: Physical Exam Physical Exam: Temp Pulse Resp BP Pulse Ox 36.6 C 69 16 182/87 H 92 11/01/18 20:12 11/01/18 20:12 11/01/18 20:12 11/01/18 21:11 11/01/18 20:12 Lab Data & Imaging Review 11/01/18 14:05 Sodium 139 mEq/L (135-145) 11/01/18 14:05 Potassium 4.4 mEq/L (3.5-5.2) 11/01/18 14:05 Chloride 108 mEq/L (97-110) 11/01/18 14:05 Carbon Dioxide 22 mEq/l (22-31) 11/01/18 14:05 Anion Gap 9 mEq/L (6-14) 11/01/18 14:05 BUN 30 mg/dL (7-23) H 11/01/18 14:05 Creatinine 1.5 mg/dL (0.7-1.3) H 11/01/18 14:05 Estimated GFR 44 11/01/18 14:05 Glucose 93 mg/dL (70-100) 11/01/18 14:05 Calcium 9.0 mg/dL (8.5-10.4) 11/01/18 14:05 Assessment & Plan Plan: Care plan reviewed with JIMMIE Douglas, agree with her assessment and plan as outlined above. Patient seen independently by myself, please see separate note for further information.
[2018-11-01] MEDS: OXYCODONE/APAP 5/325 TAB PO PRN ×2 (18:37→21:25)
[2018-11-01] MEDS: D5W 1/2 NS W/ 20 KCl/L 1,000 ML IV SCH (18:43)
[2018-11-01] MEDS ORDERED: PROPRANOLOL HCL 40 MG TAB PO SCH (18:45)
[2018-11-01] MEDS ORDERED: LOSARTAN POTASSIUM 50 MG TAB PO SCH (21:00)
[2018-11-01] MEDS: LOSARTAN/HCTZ 50/12.5 1 TAB PO SCH (21:11)
[2018-11-01] MEDS: GABAPENTIN 300 MG CAP PO SCH (21:11)
[2018-11-01] MEDS: PSYLLIUM METAMUCIL 1 PKT PO SCH (21:12)
[2018-11-01] MEDS: ATORVASTATIN CALCIUM 10 MG TAB PO SCH (21:12)
[2018-11-01] MEDS: AMIODARONE HCL 200 MG TAB PO SCH (21:17)
[2018-11-01] MEDS: LEVETIRACETAM PO SCH (21:21)
[2018-11-01] MEDS: LATANOPROST 0.005% 2.5 ML OPHT DROPS EACHEYE SCH (21:21)
--- NOTE | 2018-11-01 21:53 | HOSPPROG ---
Hospitalist Progress Note Assessment/Plan: 88 yo M with PMH of a fib, symptomatic bradycardia and essential tremor now sp ruptured quadriceps tendon repair # quadriceps tendon repair: patient doing well in post op setting, pain is controlled, will need pt/ot to evaluate # a fib: on personal review of telemetry monitoring currently appears to be in SR, he is on chronic AC for this which is being held due to surgery today, will resume when cleared by ortho, continue tele monitoring, continue amiodarone # symptomatic bradycardia: with hx of recurrent syncopal events and symptomatic bradycardia followed by [facility] with plan for PPM placement (delayed due to tendon rupture as above), on chronic propranolol and sounds as though when this was attempted to be dc'ed patient had such significant tremor he could not feed himself, cardiology to see in am, will hold propranolol for now with HR in the 50s for most of the day # essential tremor: as above, followed by neurology, sxs are severe and patient unable to tolerate discontinuation of bb despite bradycardia, will resume propranolol so long as HR remains stable and ok with cardiology # htn: currently uncontrolled, may be in part due to pain, will continue losartan/hctz, amlodipine # hld: continue statin # Patient new to my care. Old records reviewed and summarized as above. Care plan reviewed with JIMMIE Douglas, please see her H&P for further details, agree with her plan as outlined. Objective: Vital Signs Temp Pulse Resp BP Pulse Ox 36.6 C 69 16 182/87 H 92 11/01/18 20:12 11/01/18 20:12 11/01/18 20:12 11/01/18 21:11 11/01/18 20:12 Laboratory Results 11/01/18 14:05 10/31/18 11/01/18 11/02/18 05:59 05:59 05:59 Intake Total 1100 Output Total 200 Balance 900 ICD10 Worksheet Patient Problems: Problems Problem Status Onset Head injury Acute Forehead laceration Acute Contusion of left knee Acute Abrasion, left knee, initial encounter Acute
[2018-11-02] MEDS: OXYCODONE/APAP 5/325 TAB PO PRN ×5 (01:41→23:25)
[2018-11-02] MEDS: D5W 1/2 NS W/ 20 KCl/L 1,000 ML IV SCH (04:30)
--- NOTE | 2018-11-02 06:04 | GOP ---
DATE OF OPERATION: SURGEON: Beckie Arreola MD INTERNET MARKETING DIRECTOR: social research assistant, Brock Lawler PA-C, was medically required for positioning of the leg during open quad tendon repair. PREOPERATIVE DIAGNOSIS: Right quadriceps tendon tear. POSTOPERATIVE DIAGNOSIS: Right quadriceps tendon tear. PROCEDURE PERFORMED: Open repair of right quadriceps tendon tear. FINDINGS: ESTIMATED BLOOD LOSS: Minimal. INDICATIONS: The patient is an 88-year-old male who had successive falls in between a knee arthrosco py about 6 weeks ago. Successive MRIs show interval full-thickness quad tendon tear. Patient had in creasing pain in the right knee and inability to walk with an extension lag. The patient elects for operative treatment. The patient identified in the preoperative holding area. Consent, laterality, and preoperative antib iotics were confirmed delivered. All questions were answered. His family was available for question s and answers. I had spoken to Dr. Fisher, his press service reader. He has been off Eliquis for the last 3 d ays. DESCRIPTION OF PROCEDURE: The patient was brought into the operating room, adductor canal block on t he right side. General anesthesia. Right thigh tourniquet placed. Right greater trochanter bump wa s placed. The right lower extremity was prepped and draped in usual sterile fashion. Surgical time- out was performed. Total tourniquet time was 63 minutes. A midline incision was made. Full-thickne ss flaps. Paratenon was taken in line. We encountered fluid about the knee. The quad tendon was co mpletely severed from the top of the patella. There was degenerative tissue. We debrided the top of the patella. Debrided the ends of the quad tendon. We freed up the adhesions proximal to the quad, approximately 4 fingerbreadths higher than the insertion. We placed whipstitches, three #2 FiberWir e up and down each column of the quad tendon. Drilled 4 holes in the patella from proximal to distal . Used a Hewson suture passer to pass the sutures, tied the knots off on the inferior patella and br ought them back up as a tension band technique and finished these, with a tie down in a full extensio n up in the quad tendon. We took the knee through a range of motion of 0-45 degrees without any sign ificant gapping of the quad tendon. We copiously washed out the wound with 500 cc of warm normal saline. 2-0 PDS for closure of the para tenon, 3-0 Monocryl for deep subcutaneous and superficial subcutaneous closure, and a Stratafix barbe d Monocryl was used for skin. Mastisol, Steri-Strips, Xeroform, 4x4s, ABD, sterile Peter used. 10 cc of 0.2% ropivacaine was injected around the soft subcutaneous tissue. COMPLICATIONS: None. DISPOSITION: Extubated, awake to PACU in stable condition. /[id number]/MODL
--- NOTE | 2018-11-02 09:21 | SOAPPROG ---
SOAP Progress Note Assessment/Plan: a/p 88 yo male, pod#1 s/p right knee quad tendon rupture repair by dr. quiroz on 10/02/18, doing well w/o any complications so far -being seen by hospitalist for management of medical issues -proph: scd's left leg, steven lopez b/l, incentive spirometry -pain: percocet 5/325 1 tab po q4h prn pain -pt/ot: weight bearing as tolerated in straight leg knee immobilizer, may come out of SLKI w/ PT for ONLY 0-30 deg range of motion, NO FLEXION PAST 30 degrees -plan for dispo based on medicine/PT/ortho recs Subjective: lemuel reports no issues over night, pain was well controlled with taking pills a few times, lots of noise over night, but was able to get some sleep. denies cp/ sob, fevers/chills, denies numbness/tingling. denies any falls or injuries voiding freely, passing gas, but no bowel movement yet. Objective: RLE: dressings c/d/i, Straight leg knee immobilizer in place, full ankle/ digital rom, grossly nivd w/ pt/dp 2+ Vital Signs Temp Pulse Resp BP Pulse Ox 37.0 C 62 12 136/79 H 97 11/02/18 07:59 11/02/18 07:59 11/02/18 07:59 11/02/18 07:59 11/02/18 07:59 Laboratory Results 11/02/18 03:28 11/02/18 03:28 11/01/18 11/02/18 11/03/18 05:59 05:59 05:59 Intake Total 5866 5296 Output Total 925 375 Balance 813 535 ICD10 Worksheet Patient Problems: Problems Problem Status Onset Abrasion, left knee, initial encounter Acute Contusion of left knee Acute Forehead laceration Acute Head injury Acute
[2018-11-02] MEDS: AMIODARONE HCL 200 MG TAB PO SCH (09:25)
--- NOTE | 2018-11-02 09:53 | PDCARCONS ---
Cardiology Consult Reason for Consult: Atrial fibrillation with bradycardia Chief Complaint: right knee surgery (POD#1) Requesting Physician: Ortho/Hospitalist History of Present Illness: Patient is an 88 year old male with past medical history of atrial fibrillation (on Eliquis with [id number]), HTN, essential tremor (with treatment on beta blockers), symptomatic bradycardia, right knee meniscal repair, and left knee with pending surgical intervention, who is now POD#1 for the aforementioned right knee surgery with concerns about history of slow heart rates and outpatient PPM implantation scheduled (for 10-31-18). At present, the patient is feeling reasonably well. Right knee pains are the chief complaint (and morphine was requested just prior to my arrival). Patient has been without chest pains or pressure. No PND or orthopnea. No dizziness or lightheadedness. No syncope has been noted. Patient has been followed in the outpatient setting by my partner, Dr. Fransico Fisher, and arrangements for PPM with Dr. Stacy Pittman were in place before the semiurgent knee for the orthopaedic surgery recently performed. No issues have been noted during this hospitalization. There are plans to increase the patient's beta blockers (for the degree of tremor noted), but given the bradycardia that had been noted, PPM implantation was planned. History Information - Allergies/Home Medication List Allergies/Adverse Reactions: No Known Allergies Allergy (Verified 08/10/18 12:06) Home Medications: Atorvastatin Calcium [Lipitor 10 mg (*)] 10 mg PO HS 08/10/16 [Last Taken 20:00] diphenhydrAMINE [Benadryl 50 MG (*)] 50 mg PO HS 10/23/16 [Last Taken Unknown] Gabapentin [Neurontin 300 MG (*)] 300 mg PO HS 02/13/17 [Last Taken 03/28/17 21: 00] Apixaban [Eliquis] 5 mg PO BID 03/29/17 [Last Taken 03/28/17 20:00] Latanoprost 0.005% [Xalatan 0.005% (*)] 1 drops EACHEYE HS 03/29/17 [Last Taken 03/28/17 21:00] Amiodarone HCl [Pacerone (*)] 100 mg PO DAILY 08/10/18 [Last Taken Unknown] Herbals/Supplements -Info Only 1 ea PO DAILY 10/30/18 [Last Taken Unknown] Losartan/Hydrochlorothiazide [Losartan-Hctz 100-12.5 mg Tab] 1 each PO HS [Last Taken Unknown] Propranolol HCl 60 mg PO DAILY 10/30/18 [Last Taken Unknown] Psyllium Husk (with Sugar) [Metamucil Packet] 1 each PO HS 10/30/18 [Last Taken Unknown] levETIRACETAM [Keppra Xr] 3,000 mg PO DAILY 10/30/18 [Last Taken Unknown] I have personally reviewed and updated: family history, medical history, social history, surgical history Past Medical History: - Past Medical History atrial fibrillation, hypertension - Surgical History Additional surgical history: right knee surgery (POD#1). Right rotator cuff repair (~10 years ago) - Family History Positive for: non-pertinent - Social History Smoking Status: Never smoked Alcohol Use: Sober Drug Use: Marijuana Age in Years: 75 or older Sex: Male Congestive Heart Failure History: No Hypertension History: Yes Stroke/TIA/Thromboembolism History: No Vascular Disease History: No Diabetes Mellitus: No [id number] Score: 3 Physical Exam Physical Exam: Temp Pulse Resp BP Pulse Ox 37.0 C 62 12 136/79 H 97 11/02/18 07:59 11/02/18 07:59 11/02/18 07:59 11/02/18 07:59 11/02/18 07:59 Constitutional: no apparent distress, appears nourished, not in pain Eyes: PERRL, EOMI, No icteric sclera Ears, Nose, Mouth, Throat: moist mucous membranes, hearing normal Cardiovascular: regular rate and rhythym, no murmur, rub, or gallop, pulses symmetric bilaterally, No irregularly irregular, No JVD, No tachycardia, No bradycardia, No edema Peripheral Pulses: 2+: dorsalis-pedis (R), dorsalis-pedis (L) Respiratory: no respiratory distress, no rales or rhonchi, clear to auscultation , No expiratory wheeze, No bronchial breath sounds Gastrointestinal: normoactive bowel sounds Skin: warm, normal color Musculoskeletal: other (recent R knee surge ) Neurologic: AAOx3, sensation intact bilaterally, CN II-XII Intact, No facial droop Psychiatric: interacting appropriately, not anxious, not encephalopathic Lab and Imaging 11/02/18 03:28 11/02/18 03:28 Hgb 12.3 g/dL (13.7-17.5) L 11/02/18 03:28 Hct 36.2 % (40.0-51.0) L 11/02/18 03:28 Sodium 137 mEq/L (135-145) 11/02/18 03:28 Potassium 5.2 mEq/L (3.5-5.2) 11/02/18 03:28 Chloride 106 mEq/L (97-110) 11/02/18 03:28 Carbon Dioxide 23 mEq/l (22-31) 11/02/18 03:28 Anion Gap 8 mEq/L (6-14) 11/02/18 03:28 BUN 24 mg/dL (7-23) H 11/02/18 03:28 Creatinine 1.2 mg/dL (0.7-1.3) 11/02/18 03:28 Estimated GFR 57 11/02/18 03:28 Glucose 158 mg/dL (70-100) H 11/02/18 03:28 Calcium 8.5 mg/dL (8.5-10.4) 11/02/18 03:28 Telemetry: normal sinus rhythm A/P Assessment: Patient is an 88 y/o male with history of HTN and pAF (on Eliquis with [id number] score of 3), who is POD#1 for right knee surgery. In the outpatient setting, the patient was scheduled for PPM to allow more aggressive beta favian use for essential tremor. No cardiovascular events while in house. PT/OT wanting to start aggressive therapy, and given this desire, would refrain from PPM implant at this time. Furthermore, the patient has no symptoms suggestive of urgent need to have pacer placement. Would continue medical therapy as at present (would clear for Eliquis use after discussion with ortho). Plan: Would have patient seen by cardiology (Dr. Fisher and/or Dr. Pittman) within the next week. Patient and were in agreement with these plans.
--- NOTE | 2018-11-02 11:02 | PDMN ---
Medical Necessity Medical necessity: Pt meets IP criteria as of 11/01/2018 per and [facility] ( musculoskeletal surgery); est los > 2 mn for ongoing tx s/p open repair of right quadriceps tendon tear in an elderly pt with hx of symptomatic bradycarida and afib on AC. Pt to get pacemaker placement after recovery from this admission; requiring pain control, cardiology consult, med management and therapies.
[2018-11-02] MEDS: LEVETIRACETAM PO SCH (12:30)
[2018-11-02] MEDS ORDERED: LACTULOSE 20 GM/30 ML UDCUP PO PRN (12:37)
[2018-11-02] MEDS ORDERED: MAGNESIUM HYDROXIDE 30 ML UDCUP PO PRN (12:37)
[2018-11-02] MEDS ORDERED: POLYETHYLENE GLYCOL 3350 17 GM PKT PO PRN (12:37)
[2018-11-02] MEDS ORDERED: BISACODYL 10 MG SUPP PR PRN (12:37)
--- NOTE | 2018-11-02 14:24 | ASMTCMCOM ---
CM Note CM Note Notes: Pt is a 88 y/o man admitted for quadriceps tendon rupture. Pt had surgery w/ Dr. Arreola. Therapies are recommending HC. CM met w/ pt and family for dispo planning. All are in agreement w/ HC. CM provided pt and family w/ list of hc agencies. Referral made to [facility]. [facility] is able to accept. Pt is aware that he needs to be homebound. CM confirmed pts address and phone number. CM to follow. Plan: [facility]; PT, OT, RN Date Signed: 11/02/2018 02:24 PM Electronically Signed By:RORO Gilbert
--- NOTE | 2018-11-02 16:55 | HOSPPROG ---
Hospitalist Progress Note Assessment/Plan: 88yo M here for right quadricep tendon repair. Medicine has been consulted for help with management of chronic medical issues and bradycardia. 1. Bradycardia: Sinus on monitor. HR in normal range most of day. - Outpatient monitor notes HR as low as 40s. He has had some fatigue with this but no presyncope/syncope - Per his outpt pharmacy technology instructor, plan for pacemaker placement so propranolol could be up-titrated to manage his essential tremor - No urgent need for pacemaker at this time - Ok to continue outpatient propranolol dose, monitor on telemetry 2. Paroxysmal atrial fibrillation: Sinus as above - Continue amiodarone 100mg daily - Resume eliquis 3. Essential tremor: Followed by [facility]. On gabapentin and propranolol. 4. HTN: BP better. Continue home losartan/hctz. 5. Transient epileptic amnesia: On keppra. 6. Right quadricep tendon repair by Dr Arreola - Pain mgmt per ortho team VTE ppx: therapeutic anticoagulation Would monitor overnight on telemetry. Continue pain control and working with PT/ OT. Subjective: Right knee pain worsened today but overall feeling well. No issues. Objective: Vital Signs Temp Pulse Resp BP Pulse Ox 36.5 C 84 18 144/75 H 98 11/02/18 15:43 11/02/18 15:43 11/02/18 15:43 11/02/18 15:43 11/02/18 15:43 Laboratory Results 11/02/18 03:28 11/02/18 03:28 11/01/18 11/02/18 11/03/18 05:59 05:59 05:59 Intake Total 1475 1750 Output Total 850 375 Balance 625 1375 - Physical Exam Constitutional: no apparent distress, appears nourished, not in pain Eyes: PERRL, anicteric sclera, EOMI Ears, Nose, Mouth, Throat: moist mucous membranes, hearing normal, ears appear normal, no oral mucosal ulcers Cardiovascular: regular rate and rhythym, no murmur, rub, or gallop, No edema Respiratory: no respiratory distress, no rales or rhonchi, clear to auscultation Gastrointestinal: normoactive bowel sounds, soft, non-tender abdomen, no palpable masses Genitourinary: no bladder fullness, no bladder tenderness, no renal bruits Skin: no rashes or abrasions, no fluctuance, no induration Musculoskeletal: other (right leg in brace) Neurologic: AAOx3, sensation intact bilaterally Psychiatric: interacting appropriately, not anxious, not encephalopathic, thought process linear ICD10 Worksheet Patient Problems: Problems Problem Status Onset Abrasion, left knee, initial encounter Acute Contusion of left knee Acute Forehead laceration Acute Head injury Acute
[2018-11-02] MEDS: PROPRANOLOL SR 60 MG CAP PO SCH (17:22)
--- NOTE | 2018-11-02 19:14 | SOAPPROG ---
SOAP Progress Note Assessment/Plan: Assessment: POD 1. As expected. Medically stable Plan: 11/02/18 19:13 Plan for home with home health PO pain meds Safety eval for home Appreciate cards and hospitalist input Resume home meds Subjective: POD 1 pain well controlled on percocet and intermittent IV morphine At rest, his knee feels well UP in chair today PT/OT today Objective: Vital Signs Temp Pulse Resp BP Pulse Ox 36.5 C 84 18 144/75 H 98 11/02/18 15:43 11/02/18 15:43 11/02/18 15:43 11/02/18 15:43 11/02/18 15:43 Laboratory Results 11/02/18 03:28 11/02/18 03:28 11/01/18 11/02/18 11/03/18 05:59 05:59 05:59 Intake Total 1475 2435 Output Total 850 375 Balance 625 2060 dressing cdi able to straight leg raise able to actively heel slide to 30 mobile ankle and toes ICD10 Worksheet Patient Problems: Problems Problem Status Onset Abrasion, left knee, initial encounter Acute Contusion of left knee Acute Forehead laceration Acute Head injury Acute
[2018-11-02] MEDS: PSYLLIUM METAMUCIL 1 PKT PO SCH (21:18)
[2018-11-02] MEDS: LOSARTAN/HCTZ 50/12.5 1 TAB PO SCH (21:18)
[2018-11-02] MEDS: SENNOSIDES/DOCUSATE SODIUM TAB PO SCH (21:19)
[2018-11-02] MEDS: ATORVASTATIN CALCIUM 10 MG TAB PO SCH (21:19)
[2018-11-02] MEDS: GABAPENTIN 300 MG CAP PO SCH (21:19)
[2018-11-02] MEDS: APIXABAN 5 MG TAB PO SCH (21:20)
[2018-11-02] MEDS: LATANOPROST 0.005% 2.5 ML OPHT DROPS EACHEYE SCH (21:24)
--- NOTE | 2018-11-03 07:54 | PDIAF ---
- Diagnosis Diagnosis: Right quad tendon tear Code Status: Full Code - Medication Management Discharge Medications: electronically signed and located in the Home Medication List. PICC Care - Routine: N/A - Orders Services needed: Home Care, Physical Therapy, Occupational Therapy Home Care Face to Face: I certify that this patient was under my care and that I had the required pzcs-jz-rpmu encounter meeting the encounter requirements on the discharge day. My findings support the fact that the patient is homebound as defined in Home Care Face to Face Continued: CMS Chapter 7 Medicare Benefits Manual 30.1.1 , The condition of the patient is such that there exists a normal inability to leave home and consequently, leaving home would require a considerable and taxing effort. Isolation Type: None Diet Recommendation: no restrictions on diet Diet Texture: Regular Texture Diet Stephane Stockings Discontinue Date: 10 days postop Wound Care Instructions: Dry sterile Dressing PRN Activity/Weight Bearing Restrictions: WBAT. Walker. Knee immobilizer when out of bed. Heels slides to 30 degrees Additional Instructions: resume home medications FU at [facility] on monday or for incision check with PA. WBAT Walker Heel slides to 30 FU with PCP PRN FU [facility] cardiology 1-[address] Fisher - Follow Up Care Current Providers and Referrals: Fly Cervantes MD [Primary Care Provider] - Beckie Arreola MD [Medical Doctor] - Barber Fisher MD [Medical Doctor] -
--- NOTE | 2018-11-03 09:10 | HOSPPROG ---
Hospitalist Progress Note Assessment/Plan: 88M s/p knee surgery Impression 1. bradycardia on propranolol with outpatient plan for ppm; no indication for urgent ppm 2. essential tremor intolerable without propranolol 3. p-AF 4. htn 5. focal epilepsy 6. mild EDVIN, resolved Plan - cont propranolol - f/u cardiology 1-2 weeks for ppm when recovered from knee surgery - cont eliquis - cont hctz/losartan - ok for dc from IM perspective Subjective: cc s/p knee surgery; did not sleep well last night; requests reg diet no CP, SOB, syncope; ET unchanged Objective: Vital Signs Temp Pulse Resp BP Pulse Ox 36.7 C 56 L 17 110/55 L 93 11/03/18 04:00 11/03/18 04:00 11/03/18 04:00 11/03/18 04:00 11/03/18 04:00 Laboratory Results 11/02/18 03:28 11/02/18 03:28 11/02/18 11/03/18 11/04/18 05:59 05:59 05:59 Intake Total 1475 2535 Output Total 850 925 Balance 625 1610 chart reviewed tele personally reviewed labs reviewed - Physical Exam Constitutional: no apparent distress, appears nourished, other (significant intention tremor) Cardiovascular: regular rate and rhythym (very distant), No systolic murmur, No diastolic murmur Respiratory: no respiratory distress, no rales or rhonchi, clear to auscultation Gastrointestinal: normoactive bowel sounds, soft, non-tender abdomen, no palpable masses, No tenderness Musculoskeletal: other (R knee in bandage) ICD10 Worksheet Patient Problems: Problems Problem Status Onset Quadriceps tendon rupture Acute Abrasion, left knee, initial encounter Acute Contusion of left knee Acute Forehead laceration Acute Head injury Acute
[2018-11-03] MEDS: PROPRANOLOL SR 60 MG CAP PO SCH (09:40)
[2018-11-03] MEDS: SENNOSIDES/DOCUSATE SODIUM TAB PO SCH ×2 (09:41→20:03)
[2018-11-03] MEDS: APIXABAN 5 MG TAB PO SCH ×2 (09:41→20:03)
[2018-11-03] MEDS: AMIODARONE HCL 200 MG TAB PO SCH (09:41)
[2018-11-03] MEDS: OXYCODONE/APAP 5/325 TAB PO PRN ×2 (09:41→18:42)
[2018-11-03] MEDS: LEVETIRACETAM PO SCH (09:45)
[2018-11-03] MEDS ORDERED: NS 1,000 ML IV ONE (11:49)
--- NOTE | 2018-11-03 13:24 | ASMTCMCOM ---
CM Note CM Note Notes: Discharge orders were in this morning. After meeting with pt, pt's family, PT/OT, and discussing with MD discharge is cancelled for today. Pt now interested in going to SNF. CM submit referrals to [facility] in [place], and [facility]. Pt's family reported concerns about being unable to care for pt at discharge and are in agreement. JASE called Dr. Arreola's office and Dr. العراقي returned the call and he said that he did not handle discharges, despite Dr. Arreola completing transfer of care. CM spoke with RN/MD. CM to follow. Date Signed: 11/03/2018 01:23 PM Electronically Signed By:RORO Francois
[2018-11-03] MEDS: ATORVASTATIN CALCIUM 10 MG TAB PO SCH (20:03)
[2018-11-03] MEDS: LOSARTAN/HCTZ 50/12.5 1 TAB PO SCH (20:03)
[2018-11-03] MEDS: PSYLLIUM METAMUCIL 1 PKT PO SCH (20:03)
[2018-11-03] MEDS: GABAPENTIN 300 MG CAP PO SCH (20:03)
[2018-11-03] MEDS: LATANOPROST 0.005% 2.5 ML OPHT DROPS EACHEYE SCH (20:04)
[2018-11-04] MEDS: OXYCODONE/APAP 5/325 TAB PO PRN (07:15)
[2018-11-04] MEDS: PROPRANOLOL SR 60 MG CAP PO SCH (07:47)
[2018-11-04] MEDS: SENNOSIDES/DOCUSATE SODIUM TAB PO SCH ×2 (07:47→20:32)
[2018-11-04] MEDS: APIXABAN 5 MG TAB PO SCH ×2 (07:47→20:33)
[2018-11-04] MEDS: AMIODARONE HCL 200 MG TAB PO SCH (07:47)
[2018-11-04] MEDS: LEVETIRACETAM PO SCH (07:50)
--- NOTE | 2018-11-04 09:32 | HOSPPROG ---
Hospitalist Progress Note Assessment/Plan: 88M s/p knee surgery. Impression 1. bradycardia on propranolol with outpatient plan for ppm; no indication for urgent ppm 2. relative hypotension, holding hctz/losartan 3. essential tremor intolerable without propranolol 4. p-AF 5. htn 6. focal epilepsy 7. mild EDVIN, resolved Plan - cont propranolol - f/u cardiology 1-2 weeks for ppm when recovered from knee surgery - cont eliquis - hold hctz/losartan - IV fluids if he has more hypotension - cont PT/OT - will need snf on dc - possibly tomorrow Subjective: feels very weak today; not doing well moving around; has knee pain ; some lightheadedness; no dizziness Objective: Vital Signs Temp Pulse Resp BP Pulse Ox 37.6 C 63 18 113/59 L 95 11/04/18 07:22 11/04/18 07:47 11/04/18 07:22 11/04/18 07:47 11/04/18 07:22 Laboratory Results 11/03/18 12:00 11/02/18 03:28 11/03/18 11/04/18 11/05/18 05:59 05:59 05:59 Intake Total 2535 700 Output Total 925 450 Balance 1610 250 hihg risk with relative hypotension today - Physical Exam Constitutional: no apparent distress Cardiovascular: regular rate and rhythym, no murmur, rub, or gallop Respiratory: no respiratory distress, no rales or rhonchi, clear to auscultation Gastrointestinal: soft, non-tender abdomen, no palpable masses, No guarding, No rebound, No distension ICD10 Worksheet Patient Problems: Problems Problem Status Onset Quadriceps tendon rupture Acute Head injury Acute Forehead laceration Acute Contusion of left knee Acute Abrasion, left knee, initial encounter Acute
[2018-11-04 09:59] LABS: PLATELET COUNT 188 10^3/uL (150-400)
[2018-11-04] MEDS ORDERED: NS 1,000 ML IV ONE (10:52)
[2018-11-04] MEDS: PSYLLIUM METAMUCIL 1 PKT PO SCH (20:33)
[2018-11-04] MEDS: LOSARTAN/HCTZ 50/12.5 1 TAB PO SCH (20:33)
[2018-11-04] MEDS: GABAPENTIN 300 MG CAP PO SCH (20:33)
[2018-11-04] MEDS: LATANOPROST 0.005% 2.5 ML OPHT DROPS EACHEYE SCH (20:33)
[2018-11-04] MEDS: ATORVASTATIN CALCIUM 10 MG TAB PO SCH (20:33)
[2018-11-05] MEDS: OXYCODONE/APAP 5/325 TAB PO PRN (07:57)
[2018-11-05] MEDS: APIXABAN 5 MG TAB PO SCH (08:54)
[2018-11-05] MEDS: AMIODARONE HCL 200 MG TAB PO SCH (08:54)
[2018-11-05] MEDS: PROPRANOLOL SR 60 MG CAP PO SCH (08:55)
[2018-11-05] MEDS: SENNOSIDES/DOCUSATE SODIUM TAB PO SCH (08:55)
[2018-11-05] MEDS: LEVETIRACETAM PO SCH (08:57)
[2018-11-05 11:52] VITALS: BP 82/51
--- NOTE | 2018-11-05 12:10 | PDIAF ---
- Diagnosis Diagnosis: Right quad tendon tear Code Status: Full Code - Medication Management Discharge Medications: electronically signed and located in the Home Medication List. PICC Care - Routine: N/A - Orders Services needed: Home Care, Physical Therapy, Occupational Therapy Home Care Face to Face: I certify that this patient was under my care and that I had the required esur-hy-rfov encounter meeting the encounter requirements on the discharge day. My findings support the fact that the patient is homebound as defined in Home Care Face to Face Continued: CMS Chapter 7 Medicare Benefits Manual 30.1.1 , The condition of the patient is such that there exists a normal inability to leave home and consequently, leaving home would require a considerable and taxing effort. Isolation Type: None Diet Recommendation: no restrictions on diet Diet Texture: Regular Texture Diet Stephane Stockings Discontinue Date: 10 days postop Wound Care Instructions: Dry sterile Dressing PRN Activity/Weight Bearing Restrictions: WBAT. Walker. Knee immobilizer when out of bed. Heels slides to 30 degrees Additional Instructions: FU at [facility] on monday or for incision check with PA. WBAT Walker Heel slides to 30 FU with PCP PRN FU [facility] cardiology 1-[address] Fisher - Labs/Radiology BMP Date: 11/07/18 - Follow Up Care Current Providers and Referrals: Barber Fisher MD [Medical Doctor] - Beckie Arreola MD [Medical Doctor] - Fly Cervantes MD [Primary Care Provider] -
--- NOTE | 2018-11-05 12:21 | ASMTLACE ---
LACE Length of stay for Answers: 4-6 days current admission Acuity / Level of Answers: Yes Care: Did the patient have an inpatient admission? Comorbidities - select Answers: Any tumor (including all that apply lymphoma or leukemia) Opioid dependence / Chronic pain Previous myocardial infarction Other Notes: HTN # of Emergency department Answers: 1-2 visits in the last 6 months Social determinants Answers: Mental health diagnosis (anxiety, depression, pers onality disorders, etc.) Score: 19 Date Signed: 11/05/2018 12:20 PM Electronically Signed By:Lizette Mast RN
--- NOTE | 2018-11-05 12:23 | ASMTDCNOTE ---
Case Management Discharge Discharge Order Complete? Answers: Yes Patient to Obtain Answers: Other Notes: [facility] Transportation Arranged Answers: Other Notes: [facility] will Pick (Date 11/05/2018 03:00 PM & Time) Faxed Final Orders Answers: Yes Family Notified Answers: Yes Discharge Comments Notes: Patient discharged to [facility]. notified. Transport set up by facility; NIKHIL Kendrick to call report. Date Signed: 11/05/2018 12:22 PM Electronically Signed By:Lizette Mast RN
--- NOTE | 2018-11-05 14:37 | SOAPPROG ---
SOAP Progress Note Assessment/Plan: Assessment: POD 1. As expected. Medically stable Plan: 11/02/18 19:13 Plan for home with home health PO pain meds Safety eval for home Appreciate cards and hospitalist input Resume home meds 11/05/18 14:36 dispo to rehab agree fu this week or next week in my clinic for incision check and clinical exam Subjective: plan for dispo today no interval acute trauma PT and OT some hypotension with mobility otherwise stable from a cardiac perspective Objective: Vital Signs Temp Pulse Resp BP Pulse Ox 36.6 C 69 18 82/51 L 97 11/05/18 11:14 11/05/18 11:50 11/05/18 11:14 11/05/18 11:50 11/05/18 11:14 Laboratory Results 11/04/18 09:43 11/05/18 10:03 11/04/18 11/05/18 11/06/18 05:59 05:59 05:59 Intake Total 700 1350 Output Total 450 975 200 Balance 250 375 -200 dressing cdi able to straight leg raise able to actively move feet and toes ICD10 Worksheet Patient Problems: Problems Problem Status Onset Quadriceps tendon rupture Acute Abrasion, left knee, initial encounter Acute Contusion of left knee Acute Forehead laceration Acute Head injury Acute
--- NOTE | 2018-11-05 15:07 | GDS ---
ALL DIAGNOSES: 1. Right quadriceps tendon tear, status post operative repair. 2. Bradycardia, with plans for an outpatient pacemaker. 3. Orthostatic hypotension. 4. Essential tremor, treated with propranolol. 5. Paroxysmal atrial fibrillation. 6. Hypertension. 7. Focal epilepsy. 8. Mild acute on chronic kidney insufficiency. HOSPITAL COURSE: This is an 88-year-old man admitted for a quadriceps tendon repair by Dr. Arreola. He performed this surgery on 11/01. He had been on Eliquis, which had been held prior to surgery for a trial fibrillation. This has been restarted. He is on 3 different blood pressure medications for hy pertension. These include propranolol 60 mg, hydrochlorothiazide, and losartan. Both hydrochlorothi azide and losartan have been held. He also takes propranolol for essential tremor, which he describe s as being intolerable if he is not on it. He has been mildly orthostatic hypotensive up to the day of discharge with a standing blood pressure of 82/51 and a supine blood pressure of 124/64 on the day of discharge. I have decreased his propranolol from 60 mg daily down to 10 mg b.i.d. If his tremor becomes worse, would consider increasing this. If he becomes symptomatic with his orthostatic bloo d pressures (he is currently not symptomatic), then would consider discontinuing this entirely. He h as chronic renal insufficiency. Creatinine on the day of discharge is 1.5, which is slightly above h is baseline. I have written to have this rechecked in a few days. I have encouraged him to take sig nificant p.o. His hemoglobin on the day of discharge is 12.3. FOLLOWUP: 1. Cardiology in 1-2 weeks for consideration of an outpatient pacemaker. 2. Dr. Arreola's office at [facility] either on 11/07 or 11/[address] [facility]. BILLING: I spent more than 30 minutes on the day of discharge coordinating care. Copy requested to: Dr. Fisher /[id number]/MODL
--- NOTE | 2018-11-06 09:23 | ASDISCHSUM ---
Discharge Information Plan Status:SNF Medically Cleared to Leave:11/02/2018 Discharge Date:11/05/2018 03:44 PM CM D/C Disposition:[facility] Facility ADT D/C Disposition:[facility] Facility Projected Discharge Date:11/03/2018 11:00 AM Transportation at D/C:Wheelchair Van Discharge Delay Reason: Follow-Up Date:11/03/2018 11:00 AM Discharge Slot:1 - 8:01 am - 12:00 noon Final Diagnosis: Placement Information Referral Type:*Home Health Care Services Referral ID:[id number] Provider Name: Address 1: Phone Number: Address 2: Fax Number: City: Selection Factors: State: Referral Type:*Snf/SNF Referral ID:[facility]-[id number] Provider Name:Ramon jimenez [place] Address 1:[address] [facility] Address 2: City:[place] Selection Factors: State:[place] Patient Contact Information Contact Name:JEVON Relationship: Address:[address] City:[place] Alternate Phone: [facility]/Zip Code:[place] [address] Email: Financial Information Financial Class:Medicare Primary Plan Desc:MEDICARE INPATIENT Primary Plan Number:[id number] Secondary Plan Desc:JEANIE/SERGE SUPPLEMENT Secondary Plan Number:[id number] Assessment Information LACE LACE Length of stay for Answers: 4-6 days current admission Acuity / Level of Answers: Yes Care: Did the patient have an inpatient admission? Comorbidities - select Answers: Any tumor (including all that apply lymphoma or leukemia) Opioid dependence / Chronic pain Previous myocardial infarction Other Notes: HTN # of Emergency department Answers: 1-2 visits in the last 6 months Social determinants Answers: Mental health diagnosis (anxiety, depression, pers onality disorders, etc.) Score: 19 Date Signed: 11/05/2018 12:20 PM Electronically Signed By:Lizette Mast RN [facility] Progress Note CM Note CM Note Notes: Pt is a 88 y/o man admitted for quadriceps tendon rupture. Pt had surgery w/ Dr. Arreola. Therapies are recommending HC. CM met w/ pt and family for dispo planning. All are in agreement w/ HC. CM provided pt and family w/ list of hc agencies. Referral made to [facility]. [facility] is able to accept. Pt is aware that he needs to be homebound. CM confirmed pts address and phone number. CM to follow. Plan: [facility]; PT, OT, RN Date Signed: 11/02/2018 02:24 PM Electronically Signed By:RORO Gilbert [facility] JASE Progress Note CM Note CM Note Notes: Discharge orders were in this morning. After meeting with pt, pt's family, PT/OT, and discussing with MD discharge is cancelled for today. Pt now interested in going to SNF. CM submit referrals to [facility] in [place], and [facility]. Pt's family reported concerns about being unable to care for pt at discharge and are in agreement. JASE called Dr. Arreola's office and Dr. العراقي returned the call and he said that he did not handle discharges, despite Dr. Arreola completing transfer of care. CM spoke with RN/MD. CM to follow. Date Signed: 11/03/2018 01:23 PM Electronically Signed By:RORO Francois Case Management Discharge Plan Note Case Management Discharge Discharge Order Complete? Answers: Yes Patient to Obtain Answers: Other Notes: [facility] Transportation Arranged Answers: Other Notes: [facility] will Pick (Date 11/05/2018 03:00 PM & Time) Faxed Final Orders Answers: Yes Family Notified Answers: Yes Discharge Comments Notes: [facility] Transport set up by facility; NIKHIL Kendrick to call report. Date Signed: 11/05/2018 12:22 PM Electronically Signed By:Lizette Mast RN Intervention Information Intervention Type:*IM-Signed Date of Service:11/05/2018 02:37 PM Patient Type:Inpatient Staff Member:Edna Kumari Hours: Discipline: Severity: Comment:
== END 2018-11-05 15:44 | DRG 501 ==
LOC: F3N 12:51 → F2W 18:00
PROVIDERS: ADMIT Orthopaedic Surgery; ATTEND Student in an Organized Health Care Education/Training Program
PROC: 0LQQ0ZZ Repair Right Knee Tendon, Open Approach (ICD-10-PCS; principal; 2018-11-01 14:15)
DX: S76.111A Strain of right quadriceps muscle, fascia and tendon, initial encounter (principal); W18.39XA Other fall on same level, initial encounter; Y92.9 Unspecified place or not applicable; Y99.8 Other external cause status; R00.1 Bradycardia, unspecified; T44.7X5A Adverse effect of beta-adrenoreceptor antagonists, initial encounter; I48.0 Paroxysmal atrial fibrillation; Z79.01 Long term (current) use of anticoagulants; I10 Essential (primary) hypertension; I95.1 Orthostatic hypotension; G25.0 Essential tremor; N28.9 Disorder of kidney and ureter, unspecified; N18.9 Chronic kidney disease, unspecified; E78.5 Hyperlipidemia, unspecified; G40.109 Localization-related (focal) (partial) symptomatic epilepsy and epileptic syndromes with simple partial seizures, not intractable, without status epilepticus; Z85.828 Personal history of other malignant neoplasm of skin
CPT/HCPCS: 97110-GP; 97116-GP; 97161-GP; 97166-GO; 97530-GO; 97530-GP; 97535-GO; G8978-GP-CK; G8979-GP-CI; G8987-GO-CK; G8988-GO-CI; J0690; J1100; J1170; J2270; J2405; J2704; J2795; J3010

== ENCOUNTER 2018-12-12 12:08 | Emergency (ER) | payer OTHER, MEDICARE ==
--- NOTE | 2018-12-12 14:46 | EDPHY ---
H & P Stated Complaint: R LEG SWELLING AND ERYTHEMA/HAD R KNEE SURG 6 WKS AGO Time Seen by Provider: 12/12/18 12:26 HPI/ROS: Chief complaint: Right leg redness and swelling History of present illness: This is an 88-year-old male who presents to the emergency department at the request of his orthopedic surgeon, Dr. Eugene for evaluation of right leg redness and swelling. Patient had meniscal surgery on his right knee number of weeks ago by Dr. Soto. He subsequently had a quadriceps tendon tear repaired by Dr. Arreola 6 weeks ago. He has been doing well since the surgery. However over the last few days he has developed increasing discomfort with redness and swelling. He called his orthopedic doctor who crest the patient come to the emergency department. He denies abnormal coolness or paresthesias in the leg. He denies cough, he denies shortness of breath, he denies chest pain. He is currently on Eliquis. - Personal History Current Tetanus Diphtheria and Acellular Pertussis (TDAP): Yes Tetanus Vaccine Date: < 10 years - Medical/Surgical History Hx Asthma: No Hx Chronic Respiratory Disease: No Hx Diabetes: No Hx Cardiac Disease: Yes Hx Renal Disease: No Hx Cirrhosis: No Hx Alcoholism: No Hx HIV/AIDS: No Hx Splenectomy or Spleen Trauma: No Other PMH: transient global amnesia, epilepsy on keppra, high cholesterol, HTN, R Rotator cuff repair, BCC nose and shoulder, knee arthroscopy. new onset AFIB- 01/2017 - Social History Smoking Status: Never smoked - Physical Exam Exam: General: Alert, nontoxic, easily conversant talking in full sentences. Skin: Surgical incisions site appears to be healing well. There is mild erythema and edema diffusely to the right lower leg. Left leg is unremarkable. There is no warmth on palpation of the leg. Musculoskeletal: He is moving the right lower extremity within normal tolerance is. Vascular: DP and PT pulses 2+. Neurologic: Sensation intact in both legs. Constitutional: Initial Vital Signs Temperature (C) 36.8 C 12/12/18 12:16 Heart Rate 50 L 12/12/18 12:16 Respiratory Rate 17 12/12/18 12:16 Blood Pressure 153/77 H 12/12/18 12:16 O2 Sat (%) 97 12/12/18 12:16 O2 Delivery Mode Room Air Allergies/Adverse Reactions: No Known Allergies Allergy (Verified 12/12/18 12:14) Home Medications: Medication Instructions Recorded Atorvastatin Calcium [Lipitor 10 10 mg PO HS 08/10/16 mg (*)] Gabapentin [Neurontin 300 MG (*)] 300 mg PO HS 02/13/17 Apixaban [Eliquis] 5 mg PO BID 03/29/17 Latanoprost 0.005% [Xalatan 0.005% 1 drops EACHEYE HS 03/29/17 (*)] Amiodarone HCl [Pacerone (*)] 100 mg PO DAILY 08/10/18 Herbals/Supplements -Info Only 1 ea PO DAILY 10/30/18 Psyllium Husk (with Sugar) 1 each PO HS 10/30/18 [Metamucil Packet] levETIRACETAM [KEPPRA XR 500 mg] 3,000 mg PO DAILY 10/30/18 Acetaminophen [Tylenol 325mg (*)] 325 - 650 mg PO Q4HRS PRN tab 11/03/18 Hydrocodone/APAP 5/325 [[place] 1 - 2 tab PO Q4H PRN #30 tab 11/03/18 5/325 (*)] Polyethylene Glycol 3350 [Miralax 17 gm PO DAILY PRN pkt 11/03/18 17 gm (*)] Sennosides/Docusate Sodium 1 - 2 tab PO BID tab 11/03/18 [Senokot-S] Propranolol HCl [Inderal 10mg (*)] 10 mg PO BID #60 tab 11/05/18 Gabapentin 12/12/18 Losartan-Hctz 100-12.5 mg Tab 12/12/18 Medical Decision Making - Diagnostics Imaging Results: Imaging Impressions Extremity Venous Study 12/12/18 12:30 Impression: 1. Superficial thrombophlebitis in the right greater saphenous vein and varicosities in the proximal right calf. 2. No evidence of deep vein thrombosis in the lower extremities. Findings discussed with SOPHIA Benavides 12/12/2018 at 14:36. Imaging: Discussed imaging studies w/ scallop cutter machine Radiologist ED Course/Re-evaluation: Patient seen under the supervision of my secondary supervising physician Dr. Gallito Lacey. Patient presents with right leg redness and swelling status post surgery 6 weeks ago. The leg is neurovascularly intact. Ultrasound reveals superficial thrombophlebitis and a Dee cyst. No evidence of DVT. He is already on Eliquis. I have discussed symptomatic care at home including warm compresses. I discussed the case with on-call orthopedics, Dr. Madera. He has texted Dr. Arreola to let him know the US results. The patient is to follow up with Dr. Arreola as scheduled. Strict return precautions are given. Patient voiced understanding and agreement with plan. Differential Diagnosis: Included but not limited to DVT, superficial thrombophlebitis, Dee cyst, unlikely infectious pathology Departure - Departure Disposition: Home, Routine, Self-Care Clinical Impression: Superficial thrombophlebitis Qualifiers: Superficial thrombophlebitis-Involved body area: lower extremity Laterality: right Qualified Code(s): I80.01 - Phlebitis and thrombophlebitis of superficial vessels of right lower extremity Bakers cyst Qualifiers: Laterality: right Qualified Code(s): M71.21 - Synovial cyst of popliteal space [Dee], right knee Condition: Good Instructions: Superficial Thrombophlebitis (ED), Bakers Cyst (ED) Additional Instructions: Follow-up with your orthopedic doctor as scheduled Continue all medications as prescribed If symptoms worsen or new symptoms develop return to the emergency department for recheck Referrals: Fly Cervantes MD [Primary Care Provider] - As per Instructions Beckie Arreola MD [Medical Doctor] - As per Instructions
[2018-12-12 15:06] VITALS: BP 140/90
== END 2018-12-12 15:09 | disposition home or self-care (01) ==
DX: I80.01 Phlebitis and thrombophlebitis of superficial vessels of right lower extremity (principal); M71.21 Synovial cyst of popliteal space [Baker], right knee

== ENCOUNTER 2019-04-16 07:16 | Observation (INO) | payer OTHER, MEDICARE ==
[2019-04-16] MEDS ORDERED: diphenhydrAMINE 25 MG CAP PO ONE (07:17)
[2019-04-16] MEDS ORDERED: DIAZEPAM 5 MG TAB PO ONE (07:17)
[2019-04-16] MEDS ORDERED: ceFAZolin 2 GM/DEXTROSE 100 ML IV ONE (07:17)
[2019-04-16] MEDS ORDERED: BACITRACIN IRRIGATION/NS 50,000 UNITS/1,000 ML BTL IRR ONE (07:17)
[2019-04-16] MEDS ORDERED: NS 1,000 ML IV ONE (07:17)
[2019-04-16] MEDS ORDERED: BUPIVACAINE 0.5% 30 ML SDV ONE (08:00)
[2019-04-16 08:01] LABS: PLATELET COUNT 194 10^3/uL (150-400)
[2019-04-16] MEDS ORDERED: IOPAMIDOL (ISOVUE-300) 100 ML BTL ONE (08:01)
[2019-04-16 08:10] LABS: INR 1.05 (0.83-1.16); PROTIME(PATIENT) 13.3 SEC (12.0-15.0)
--- NOTE | 2019-04-16 08:29 | PDGENHP ---
History & Physical Chief Complaint: Nonischemic cardiomyopathy, activity intolerance History of Present Illness: NICM with LVEF 15%, severe s/p AVR (12/2018), PAF s/p surgical PVI and FARZAD ligation (12/2018) Relevant Physical Exam: A&Ox4, no apparent distress, regular rate and rhythm, S1 , S2, BLUE pulses 2+ Cardiorespiratory Assessment: Proceed with implant of a biventricular ICD as planned for today
--- NOTE | 2019-04-16 08:56 | PDGENHP ---
History & Physical Chief Complaint: fatigue Relevant Physical Exam: s1s2 bradycardic. cta. ao3 Cardiorespiratory Assessment: for dual chamber pacemaker
--- NOTE | 2019-04-16 09:01 | PDANEPAE ---
ANE History of Present Illness pacemaker placemnt ANE Past Medical History - Cardiovascular History Hx Hypertension: Yes Hx Arrhythmias: Yes Hx Chest Pain: No Hx Coronary Artery / Peripheral Vascular Disease: No Hx CHF / Valvular Disease: No Hx Palpitations: No Cardiovascular History Comment: SYMPTOMATIC BRADYCARDIA - Pulmonary History Hx COPD: No Hx Asthma/Reactive Airway Disease: No Hx Recent Upper Respiratory Infection: No Hx Oxygen in Use at Home: No Hx Sleep Apnea: No - Neurologic History Hx Cerebrovascular Accident: No Hx Seizures: No Hx Dementia: No Neurologic History Comment: ESSENTIAL TREMMOR - Endocrine History Hx Diabetes: No Hypothyroid: No Hyperthyroid: No Obesity: mild - Renal History Hx Renal Disorders: No - Liver History Hx Hepatic Disorders: No - Neurological & Psychiatric Hx Hx Neurological and Psychiatric Disorders: Yes Neurological / Psychiatric History Comment: ESSENTIAL TREMOR. SITUATIONAL ANXIETY - Cancer History Hx Cancer: Yes Cancer History Comment: BASAL CELL - Congenital Disorder History Hx Congenital Disorders: No - GI History GERD: no Hx Gastrointestinal Disorders: No - Other Health History Other Health History: BRUISES EASILY - Chronic Pain History Chronic Pain: Yes (LEFT KNEE) - Surgical History Prior Surgeries: cardioversion. R KNEE SCOPE ANE Review of Systems Review of Systems: - Exercise capacity Exercise capacity: >=4 METS ANE Patient History - Allergies Allergies/Adverse Reactions: No Known Allergies Allergy (Verified 12/12/18 12:14) - Home Medications Home Medications: Atorvastatin Calcium [Lipitor 10 mg (*)] 10 mg PO HS 08/10/16 [Last Taken 20:00] Gabapentin [Neurontin 300 MG (*)] 300 mg PO HS 02/13/17 [Last Taken 03/28/17 21: 00] Apixaban [Eliquis] 5 mg PO BID 03/29/17 [Last Taken 03/28/17 20:00] Latanoprost 0.005% [Xalatan 0.005% (*)] 1 drops EACHEYE HS 03/29/17 [Last Taken 03/28/17 21:00] Amiodarone HCl [Pacerone (*)] 100 mg PO HS 08/10/18 [Last Taken Unknown] Psyllium Husk (with Sugar) [Metamucil Packet] 1 each PO HS 10/30/18 [Last Taken Unknown] levETIRACETAM [KEPPRA XR 500 mg] 3,000 mg PO DAILY 10/30/18 [Last Taken Unknown] Herbals/Supplements -Info Only 1 ea PO DAILY 04/09/19 [Last Taken Unknown] Losartan/Hydrochlorothiazide [Losartan-Hctz 100-12.5 mg Tab] 1 each PO DAILY [Last Taken Unknown] Propranolol HCl 60 mg PO DAILY 04/09/19 [Last Taken Unknown] diphenhydrAMINE [Benadryl 50 MG (*)] 50 mg PO HS 04/09/19 [Last Taken Unknown] - NPO status NPO Status: no food or drink >8 hours - Anes Hx Anes Hx: no prior problems - Smoking Hx Smoking Status: Never smoked - Family Anes Hx Family Hx Anesthesia Complications: none ANE Labs/Vital Signs - Labs Result Diagrams: 04/16/19 07:30 04/16/19 07:30 - Vital Signs Height: 203.2 cm Weight: 127.006 kg ANE Physical Exam - Airway Mallampati Score: Class 2 Mouth exam: normal dental/mouth exam - Pulmonary Pulmonary: no respiratory distress - Cardiovascular Cardiovascular: regular rate and rhythym - ASA Status ASA Status: III ANE Anesthesia Plan Anesthesia Plan: GA with mask, MAC
[2019-04-16] MEDS ORDERED: PROPOFOL/EMULSION 500 MG/50 ML BOTTLE IV ONE ×2 (09:06→09:40)
[2019-04-16] MEDS ORDERED: fentaNYL 100 MCG/2 ML INJ ONE (09:06)
[2019-04-16] MEDS ORDERED: DEXAMETHASONE 4 MG/ML VIAL ONE (09:07)
[2019-04-16] MEDS ORDERED: LIDOCAINE 2% 2 ML INJ ONE (09:07)
[2019-04-16] MEDS ORDERED: LIDOCAINE 1% 300 MG/30 ML SDV ONE (09:21)
[2019-04-16] MEDS ORDERED: ALBUTEROL 3 ML DEYVIAL IH PRN (10:32)
[2019-04-16] MEDS ORDERED: ONDANSETRON 4 MG/2 ML VIAL IVP PRN (10:32)
[2019-04-16] MEDS ORDERED: fentaNYL 100 MCG/2 ML INJ IVP PRN (10:32)
[2019-04-16] MEDS ORDERED: NALOXONE HCL 0.4 MG/ML INJ IVP PRN (10:32)
--- NOTE | 2019-04-16 10:32 | POSTANESTH ---
Post Anesthetic Evaluation Cardiovascular Status: Normal, Stable Respiratory Status: Normal, Stable Level of Consciousness/Mental Status: Can Participate in Eval Pain Control: Adequate, Prn Tx Ordered Nausea/Vomiting Control: Adequate, Prn Tx Ordered Complications Possibly Related to Anesthesia: None Noted
--- NOTE | 2019-04-16 11:06 | EPPROC ---
Electrophysiology Procedure Note: PROCEDURE PERFORMED: 1. Implantation of an A/V Pacemaker 2. Subclavian vein angiography 3. Fluoroscopy INDICATION: Sinus bradycardia, fatigue PROCEDURE NOTE: Patient presented to the cardiac catheterization laboratory in a fasting, post absorptive state. Dr. Arboleda administered moderate sedation. The left infraclavicular area was prepped and draped in the usual sterile fashion. Lidocaine plus bupivacaine was used for local anesthesia. Left subclavian venography was performed by injection of iodinated contrast into the left antecubital vein. This was done to assure patency of the vein and also to assess for any anatomical aberrations. Using a combination of blunt and sharp dissection and electrocautery, the dissection was carried down to the prepectoral fascia. A pocket was made in this anatomical plane. All bleeding was controlled with electrocautery. The pocket was packed with gauze soaked in antibiotic solution. Fluoroscopy was utilized during the entire procedure for venous access and placement of the leads. Using a direct stick technique the left extrathoracic axillary vein was accessed with 2 sticks using the modified Seldinger technique. Placement of the guidewires into the venous system was confirmed by low-pressure blood return and also by visualizing the guidewires advancing into the inferior vena cava. A purse string suture was applied around the guidewires. Two #7 [place] sheaths were advanced under fluoroscopic guidance over the guidewire. An active fixation ventricular lead was advanced into the right ventricular apex and screwed in place. An active fixation atrial lead was advanced into the right atrial appendage and screwed in place. The peel away sheaths were removed. Pacing thresholds, sensing parameters and lead impedances were measured. There was no diaphragmatic stimulation at maximum output. The leads were sutured to the prepectoral fascia with 3 nonabsorbable sutures each. The pocket was again inspected for any bleeding. The leads were attached to the pacemaker securely. The pacemaker was inserted into the pocket and secured in place with a nonabsorbable suture. Fluoroscopy was performed in PATRIC[place] and SW[place] planes to verify right-sided placement of the leads. Also fluoroscopy of the pacemaker pocket was performed. The pacemaker pocket was closed in 3 layers with absorbable monocryl sutures and pepe. Appropriate dressing was applied. The patient left the cardiac catheterization laboratory in stable condition. Serial Numbers: 1. Device: [facility] Assurity MRI compliant system SN [id number] 2. Atrial Lead: [facility] 2088TC-52 [id number] 3. Ventricular Lead: [facility] 2088TC -58 SN [id number] Stimulation Thresholds & Impedance Measurements: 1. Atrial Lead 1.6 mV 428 ohm 0.5 V 0.5 ms 2. Ventricular Lead 7.1 mV 616 ohm 0.7 V 0.5 ms Jose Elias Pacing Parameters 1. Pacing mode: DDDR 2. Lower rate: 60 ppm 3. Upper tracking rate: 130 ppm 4. Upper sensor rate: 130 ppm 5. AV delay 270 ms PVARP 400 ms Patient Problems: Problems Problem Status Onset Quadriceps tendon rupture Acute Head injury Acute Forehead laceration Acute Contusion of left knee Acute Abrasion, left knee, initial encounter Acute
--- NOTE | 2019-04-16 11:33 | GHP ---
*DRAFT UNTIL SIGNED* HISTORY & PHYSICAL History & Physical Chief Complaint: fatigue Relevant Physical Exam: s1s2 bradycardic. cta. ao3 Cardiorespiratory Assessment: for dual chamber pacemaker Vivek Pittman MD 5 T: BETHANY 04/16/19855 CC: MARQUES
[2019-04-16] MEDS ORDERED: ACETAMINOPHEN 325 MG TAB ONE (11:53)
[2019-04-16] MEDS: ACETAMINOPHEN 325 MG TAB PO PRN ×2 (12:00→21:28)
[2019-04-16] MEDS ORDERED: diphenhydrAMINE 25 MG CAP PO SCH (21:00)
[2019-04-16] MEDS ORDERED: AMIODARONE HCL 200 MG TAB PO SCH (21:00)
[2019-04-16] MEDS ORDERED: ATORVASTATIN CALCIUM 10 MG TAB PO SCH (21:00)
[2019-04-16] MEDS ORDERED: GABAPENTIN 300 MG CAP PO SCH (21:00)
[2019-04-16] MEDS ORDERED: PSYLLIUM METAMUCIL 1 PKT PO SCH (21:00)
[2019-04-16] MEDS ORDERED: LATANOPROST 0.005% 2.5 ML OPHT DROPS EACHEYE SCH (21:00)
[2019-04-16] MEDS: APIXABAN 5 MG TAB PO SCH (21:27)
[2019-04-17 04:48] LABS: PLATELET COUNT 200 10^3/uL (150-400)
[2019-04-17] MEDS: APIXABAN 5 MG TAB PO SCH (08:16)
[2019-04-17] MEDS ORDERED: LEVETIRACETAM PO SCH (09:00)
[2019-04-17] MEDS ORDERED: LOSARTAN POTASSIUM 50 MG TAB PO SCH (09:00)
[2019-04-17] MEDS ORDERED: PROPRANOLOL HCL 40 MG TAB PO SCH (09:00)
[2019-04-17] MEDS ORDERED: LOSARTAN/HCTZ 50/12.5 1 TAB PO SCH (09:00)
[2019-04-17 11:12] VITALS: BP 140/82
--- NOTE | 2019-04-17 12:01 | GDS ---
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 DISCHARGE DIAGNOSES: Status post implant of a dual-chamber permanent pacemaker. HOSPITAL COURSE: Patient presented 04/16/2019 for implant of a permanent pacemaker in the setting of symptomatic sinus bradycardia and persistent fatigue. He underwent successful implantation of a garett l-chamber permanent pacemaker with Dr. Vivek Pittman without any intra-procedure complications. He has done very well in the postprocedure setting, and he is appropriate and stable for discharge home [facility]. PHYSICAL EXAMINATION: GENERAL: Alert and oriented x4. No apparent distress. VITAL SIGNS: Blood p ressure 131/71, heart rate 63, respiratory rate 18, SpO2 93% on room air, temp 36.7 degrees Celsius. RESPIRATORY: Lungs are clear to auscultation without adventitious breath sounds. CARDIAC: Regular rate and rhythm. S1, S2. ABDOMEN: Normoactive bowel sounds times all 4 quadrants. No masses or t enderness. Soft to palpation. SKIN: [place], warm, dry without cyanosis, clubbing, or peripheral alfonso a. Left pectoral incision is clean and dry. Dressing in place without evidence of redness, oozing, swelling, erythema, or hematoma to this site. EXTREMITIES: Pulses 2+ bilaterally, normal range of m otion, normal exam. LABORATORY STUDIES: Drawn today demonstrate WBCs 9.80. CBC and BMP are otherwise stable compared to preprocedure. Of note, his creatinine has decreased from 1.6 to 1.2 postprocedure. Please note, th e elevated WBCs are to be expected in the postprocedure setting. PROCEDURES PERFORMED DURING HOSPITALIZATION: Implant of a dual-chamber permanent pacemaker as mentjemima nunezd above. Chest x-ray this morning demonstrates stable lead positioning. Device interrogation this morning demonstrates normal device function with normal thresholds and impedances. DISCHARGE DISPOSITION: Patient was discharged home in stable condition. He is under activity restri ctions as below. DISCHARGE MEDICATIONS: Please see discharge medication reconciliation sheet for full details. Ilda e note that no medication changes were made during this hospitalization. He will follow up with Dr. Fisher and Dr. Cortez regarding increasing his propranolol for management of his tremors now that he has a permanent pacemaker in place. DISCHARGE INSTRUCTIONS: Post pacemaker instructions were reviewed with the patient and his in d etail. 1. We discussed activity restrictions including avoidance of putting his left arm above the level of the shoulder, behind his back, pushing, pulling, or lifting more than 5 pounds for the next 4 weeks. We also discussed avoidance of high-intensity exertion for the next 6 weeks. 2. We reviewed wound care instructions for his left pectoral incision. 3. His pepe will be removed at his upcoming device check with our device clinic in 1 week. At the time of discharge, patient verbalized understanding regarding all discharge instructions witho ut questions or concerns. He will follow up with our device clinic in 1 week with our EP team within the next 4 weeks. He will contact [facility] with any new or concerning symptoms prior to his up coming clinic visits. Time spent on discharge, greater than 30 minutes. /[id number]/MODL
--- NOTE | 2019-04-17 12:22 | ASDISCHSUM ---
Discharge Information Plan Status:Home with No Needs Medically Cleared to Leave:04/17/2019 Discharge Date:04/17/2019 12:00 PM CM D/C Disposition:Home, Routine, Self-Care ADT D/C Disposition:Home, Routine, Self-Care Projected Discharge Date:04/17/2019 12:00 PM Transportation at D/C: Discharge Delay Reason: Follow-Up Date:04/17/2019 12:00 PM Discharge Slot: Final Diagnosis: Placement Information Patient Contact Information Contact Name:JEVON Relationship: Address:[address] [place] [address] City:[place] Alternate Phone: State/Zip Code:[place] [address] Email: Financial Information Financial Class:Medicare Primary Plan Desc:MEDICARE OUTPATIENT Primary Plan Number:[id number] Secondary Plan Desc:JEANIE/SERGE SUPPLEMENT Secondary Plan Number:[id number] Assessment Information LACE LACE Length of stay for Answers: 1 day current admission Acuity / Level of Answers: No Care: Did the patient have an inpatient admission? Comorbidities - select Answers: Opioid dependence all that apply / Chronic pain Previous myocardial infarction Other Notes: HTN; Essential tremor # of Emergency department Answers: 1-2 visits in the last 6 months Score: 8 Date Signed: 04/17/2019 12:21 PM Electronically Signed By:Elen Shah RN Intervention Information Intervention Type:*ADONIS-Signed Date of Service:04/17/2019 09:33 AM Patient Type:Observation Staff Member:Edna Kumari Hours: Discipline: Severity: Comment:
== END 2019-04-17 12:00 | disposition home or self-care (01) ==
LOC: FCATH 07:16 → F2W 10:31
PROVIDERS: ADMIT Internal Medicine Cardiovascular Disease; ATTEND Internal Medicine Cardiovascular Disease
DX: R00.1 Bradycardia, unspecified (principal); R53.83 Other fatigue; I48.0 Paroxysmal atrial fibrillation; I25.10 Atherosclerotic heart disease of native coronary artery without angina pectoris; G25.0 Essential tremor; Z79.01 Long term (current) use of anticoagulants; Z96.659 Presence of unspecified artificial knee joint
CPT/HCPCS: 33208; 71045; 71046; C1785; C1898; J0690; J1100; J2704; J3010; Q9967